=== PATIENT | female | born 1935 | race Caucasian/White ===

== ENCOUNTER 2022-12-28 06:18 | Inpatient (IN) ==
[2022-12-28] MEDS ORDERED: IOPAMIDOL 100 ML BOTTLE IV ONE (06:19)
[2022-12-28 06:44] LABS: POC Calcium, Ionized 1.31 (1.16-1.32); POC Creatinine 0.8 (0.6-1.2); POC Potassium 3.8 (3.3-5.1)
[2022-12-28] MEDS ORDERED: 0.9 % SODIUM CHLORIDE 1,000 ML IV ONE ×2 (06:53→07:58)
[2022-12-28] MEDS ORDERED: ONDANSETRON 4 MG/2 ML VIAL IV ONE (06:53)
--- NOTE | 2022-12-28 07:26 | Emergency Department Note ---
Nausea/Vomiting/Diarrhea HPI General Chief complaint: Nausea/Vomiting/Diarrhea Stated complaint: vomiting Time Seen by Provider: 12/28/22 06:28 Source: patient and EMS Mode of arrival: wheelchair Limitations: no limitations History of Present Illness HPI Narrative: The patient is an 87-year-old female with a history of DM 2, asthma, breast cancer, Charcot arthropathy with RA, GERD, HTN, CKD, previous nephrectomy who presents to the ED with nausea and vomiting. Symptoms started at around 1 AM this morning. Patient states that she has thrown up numerous times. She also reports diarrhea which is not atypical for her. No melena. No hematochezia. No hematemesis. No fevers. No urinary complaints. She denies any chest pain, shortness of breath, or abdominal pain. She states that last night she went to bed feeling "full" and believes that she may have eaten some bad food. No modifying factors. No known sick contacts. Related Data Home Medications Medication Instructions Recorded Confirmed aspirin 81 mg tablet,delayed 81 mg PO QDAY 07/12/15 04/12/22 release atenolol 25 mg tablet 12.5 mg PO QDAY 07/12/15 04/12/22 blood sugar diagnostic 07/13/15 04/12/22 cholecalciferol (vitamin D3) 25 1,000 unit PO BID 07/13/15 04/12/22 mcg (1,000 unit) capsule multivitamin 1 tab-cap PO QDAY 07/13/15 04/12/22 cyanocobalamin (vitamin B-12) 1,000 mcg PO QDAY 08/10/15 04/12/22 1,000 mcg tablet methylsulfonylmethane 1,000 mg 1,500 mg PO QDAY 12/13/15 04/12/22 tablet (MSM) pravastatin 20 mg tablet 20 mg PO QDAY 07/28/19 04/12/22 diltiazem HCl 120 mg See Rx Instructions .Route .COMPLEX 01/26/20 04/12/22 capsule,extended release 24 hr acetaminophen 500 mg capsule 500 mg PO Q6H PRN 05/04/20 04/12/22 simethicone 125 mg capsule (Gas-X 125 mg PO BID-QID PRN 05/04/20 04/12/22 Extra Strength) pantoprazole 40 mg tablet,delayed 40 mg PO QDAY 30 days #30 tabs 10/13/20 04/12/22 release levothyroxine 100 mcg capsule 100 mcg PO QDAY 04/13/21 04/12/22 cranberry 500 mg capsule 1,400 mg PO QDAY 04/12/22 04/12/22 dimethicone 5 % topical cream 1 applic topical TID-QID PRN 04/12/22 04/12/22 magnesium oxide 400 mg (241.3 mg 400 mg PO QDAY 04/12/22 04/12/22 magnesium) tablet vit cap PO 04/12/22 04/12/22 C,E,zinc,Ds-dabag-6-lutein-zeaxanthin 250 mg-2.5 mg-0.5 mg capsule Previous Rx's Medication Instructions Recorded ondansetron 4 mg disintegrating 4 mg PO Q6H PRN nausea and 07/25/22 tablet vomiting #20 tabs Allergies Allergy/AdvReac Type Severity Reaction Status Date / Time niacin Allergy Mild Unknown Verified 04/12/22 09:10 ciprofloxacin Allergy Unknown Unknown Verified 04/12/22 09:10 hydrocodone Allergy Unknown Vomiting Verified 04/12/22 09:10 losartan [Losartan] Allergy Unknown Unknown Verified 04/12/22 09:10 moxifloxacin [From Avelox] Allergy Unknown Unknown Verified 04/12/22 09:10 olmesartan [From Benicar] Allergy Unknown Unknown Verified 04/12/22 09:10 albuterol AdvReac Intermediate Other Verified 04/12/22 09:12 omeprazole [From Prilosec] AdvReac Intermediate Gastrointestinal Verified 04/12/22 09:10 Upset fenofibric acid Allergy Unknown Unknown Uncoded 04/12/22 09:10 Review of Systems ROS ROS Narrative: Narrative: All systems ED: reviewed and negative except as stated. PFSH Narrative Patient History Narrative: Narrative: Medical/Surgical/Family History All Active Problems (Updated 12/28/22 @ 07:26 by Aayush Valentine MD) Essential hypertension (Chronic) Breast cancer (Chronic) Diabetes mellitus (Chronic) GERD (gastroesophageal reflux disease) (Chronic) Hereditary and idiopathic peripheral neuropathy (Chronic) High risk medication use (Chronic) Hyperlipidemia (Chronic) Hypothyroidism (Chronic) Osteoporosis (Chronic) Pernicious anemia (Chronic) Urgency incontinence (Chronic) Vitamin D deficiency (Chronic) COPD (chronic obstructive pulmonary disease) (Chronic) Diabetes mellitus with polyneuropathy (Chronic) Other specified abnormal findings of blood chemistry (Chronic) URI (upper respiratory infection) (Chronic) Acute viral syndrome (Chronic) Asthma (Chronic) Asymptomatic cholelithiasis (Chronic) Back pain (Chronic) Boyer esophagus (Chronic) HX: breast cancer (Chronic) Cellulitis (Chronic) 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) Decrease in the ability to hear (Chronic) Fall on same level from slipping, tripping and stumbling (Chronic) Hemoptysis (Chronic) Acute bronchitis (Chronic) Acute cystitis (Chronic) Acute sinusitis (Chronic) Cystitis (Chronic) Hypertension (Chronic) Toe fracture (Chronic) Hematuria (Chronic) Low back pain (Chronic) Pneumonia (Chronic) Thyroid disease (Chronic) Diabetes mellitus type II, controlled (Chronic) Urinary frequency (Chronic) Urinary tract infection (Chronic) Infection due to drug-resistant organism (Chronic) MRSA (methicillin resistant staph aureus) culture positive (Chronic) Ductal carcinoma of left breast (Chronic) Microalbuminuria (Chronic) Pain, coccyx (Chronic) Pneumonitis (Chronic) Renal neoplasm (Chronic) Skin cancer (Chronic) Cyst (Chronic) Ureteral stone (Chronic) Hx of appendectomy (Acute) S/P skin biopsy (Acute) H/O lumpectomy (Acute) H/O mastectomy (Acute) H/O colonoscopy (Acute) Hx of esophagogastroduodenoscopy (Acute) H/O total cystectomy (Acute) Status post surgical removal of malignant neoplasm of skin (Acute) H/O hernia repair (Acute) H/O breast biopsy (Acute) History of kidney surgery (Acute) History of knee replacement (Acute) S/P rotator cuff repair (Acute) H/O lymph node biopsy (Acute) Amputated toe of right foot (Acute) S/P NICOLETTE-BSO (total abdominal hysterectomy and bilateral salpingo-oophorectomy) (Acute) Fracture, ankle (Acute) Proteinuria (Chronic) Chronic kidney disease, stage II (mild) (Chronic) Hypertensive renal disease (Chronic) Pneumonia (Acute) Bladder infection (Acute) Aspiration pneumonia (Acute) Toe contusion (Acute) Metatarsal fracture (Acute) Chronic kidney disease (CKD) stage G3a/A2, moderately decreased glomerular f iltration rate (GFR) between 45-59 mL/min/1.73 square meter and albuminuria creatinine ratio between 30-299 mg/g (Chronic) Pyuria (Acute) H/O right nephrectomy (Chronic) Non-nephrotic range proteinuria (Chronic) Contusion of foot, left (Acute) Foreign body sensation in throat (Acute) Viral gastroenteritis (Acute) Closed rib fracture (Acute) Nausea & vomiting (Acute) Medical History Acute bronchitis Acute cystitis Acute sinusitis Acute viral syndrome Amputated toe of right foot Asthma Asymptomatic cholelithiasis Back pain Boyer esophagus Bladder infection Breast cancer Cellulitis TOE Charcot arthropathy associated with rheumatoid arthritis Chronic kidney disease, stage II (mild) COPD (chronic obstructive pulmonary disease) Cyst Cystitis Decrease in the ability to hear Diabetes mellitus Diabetes mellitus type II, controlled Diabetes mellitus with polyneuropathy Ductal carcinoma of left breast Essential hypertension BP a little elevated today, usually well controlled advised to keep a BP log will follow and optimize in setting of Mild with pLVEF Fall on same level from slipping, tripping and stumbling Gastroparesis Gastric emptying study 10/13/2019 Seen at [facility] by Jazzmine Steiner GERD (gastroesophageal reflux disease) Hematuria Hemoptysis Hereditary and idiopathic peripheral neuropathy High risk medication use HX: breast cancer Hyperlipidemia Hypertension Hypertensive renal disease Hypothyroidism Infection due to drug-resistant organism Low back pain Microalbuminuria MRSA (methicillin resistant staph aureus) culture positive Osteoporosis Other specified abnormal findings of blood chemistry Pain, coccyx Pernicious anemia Pneumonia Pneumonia Pneumonitis Proteinuria Renal neoplasm Skin cancer Thyroid disease Toe fracture Ureteral stone Urgency incontinence URI (upper respiratory infection) Urinary frequency Urinary tract infection asymptomatic klebsiella on urine culture with > [id number] CFU Will treat with cephalexin Vitamin D deficiency Surgical History Fracture, ankle repair H/O breast biopsy H/O colonoscopy H/O hernia repair H/O lumpectomy H/O lymph node biopsy H/O mastectomy H/O total cystectomy Tendon Sheath History of esophagogastroduodenoscopy (EGD) (~10/08/19) Status post esophageal dilatation History of kidney surgery History of knee replacement History of Addie fundoplication (~01/17/19) Hx of appendectomy Hx of esophagogastroduodenoscopy S/P rotator cuff repair S/P skin biopsy S/P NICOLETTE-BSO (total abdominal hysterectomy and bilateral salpingo-oophorectomy) Status post surgical removal of malignant neoplasm of skin Family History Family/Other Adenomatous polyp Maternal Aunt Diabetes mellitus Maternal Aunt Malignant tumor of breast Maternal Aunt Heart disease Maternal Uncle Sister Asthma Diabetes mellitus Osteoarthritis Chronic obstructive pulmonary disease Neurological disorder Malignant neoplasm of uterus Disorder of thyroid Mother , age 51 Malignant neoplastic disease Grandmother Heart disease Maternal Coronary artery disease Maternal Daughter Diabetes mellitus Asthma Disorder of thyroid Father , age 79 Kidney disease Other Cardiac disease Malignant neoplasm of colon Osteoporosis Social History Smoking Status: Never smoker Alcohol Intake Frequency: holiday/special occasion only Substance Use: does not use Exam Narrative Narrative: Constitutional: Well-nourished, well-developed. No acute distress. HEENT: Normocephalic. Atraumatic. EOMI. Conjunctive are clear bilaterally. OP clear. Uvula midline. Dry mucous membranes. Cardiovascular: Rapid rate. Regular rhythm. No murmurs, rubs, gallops. Pulmonary: No increased work of breathing. Lung sounds clear to auscultation bilaterally. No wheezing, rales, or rhonchi. Abdomen: Soft, nondistended. Very mild discomfort with palpation in the left upper quadrant. Normal bowel sounds. No HSM. No guarding. Musculoskeletal: Normal muscular development. No obvious deformities. No lower extremity edema. Skin: Warm, dry. No rash. Neurologic: Awake, alert, and oriented. Motor function grossly intact. Afocal. General Limitations: no limitations Course Course Course Narrative: The patient is HD stable. She does not. Dry on exam. Abdomen is largely benign on exam. Labs were ordered and patient was given 1 L NS and 4 mg IV Zofran. Patient signed out to Dr. Borges pending results of her blood work and final disposition. Vital Signs Vital signs: Vital Signs Temperature 98.3 F 12/28/22 06:18 Pulse Rate 92 H 12/28/22 06:18 Respiratory Rate 30 H 12/28/22 06:18 Blood Pressure 172/66 12/28/22 06:18 Pulse Oximetry (%) 92 12/28/22 06:18 Oxygen Delivery Method Room Air 12/28/22 06:18 Temperature 98.3 F 12/28/22 06:18 Pulse Rate 94 H 12/28/22 06:41 Respiratory Rate 30 H 12/28/22 06:18 Blood Pressure 135/101 12/28/22 06:41 Pulse Oximetry (%) 94 12/28/22 06:41 Oxygen Delivery Method Room Air 12/28/22 06:18 MDM MDM Narrative Medical decision making narrative: Narrative: Differential Diagnosis Differential Diagnosis: Gastroenteritis, partial SBO, ACS, foodborne illness, dehydration Lab Data 12/28/22 06:37 Labs: Lab Results 12/28/22 Range/Units 06:40 POC Hct 42.0 (36-48) POC Sodium 144 (133-145) POC Potassium 3.8 (3.3-5.1) POC Chloride 116 H (96-108) POC Total CO2 16.0 L (22-30) POC BUN 27 H (6-20) POC Creatinine 0.8 (0.6-1.2) POC Glucose 183 H (70-105) POC WB Ioniz Calcium 1.31 (1.16-1.32) EKG Data EKG #1: EKG attestation: Yes I reviewed and interpreted this EKG. EKG results narrative: Sinus rhythm. PVC. No ST elevation or depression. Nonspecific diffuse T wave changes. Late R wave progression. Left axis deviation. Discharge Plan Patient/Caregiver Discharge Instructions Pt seen by LENS POLISHER/PA only: No Clinical Impression: Nausea & vomiting Patient Disposition: Still a Patient Condition: Undetermined Follow up with: Salma Rangel MD [Primary Care Provider] - Prescriptions: No Action atenolol 25 mg tablet 12.5 mg PO QDAY aspirin 81 mg tablet,delayed release (DR/EC) 81 mg PO QDAY cranberry 500 mg capsule 1,400 mg PO QDAY Rx Instructions: 4,200 mg a day. magnesium oxide 400 mg (241.3 mg magnesium) tablet 400 mg PO QDAY (DME) blood sugar diagnostic strip See Dose Instructions .ROUTE .MEDSUPPLY Rx Instructions: As directed cholecalciferol (vitamin D3) 1,000 unit capsule 1,000 unit PO BID multivitamin capsule 1 tab-cap PO QDAY cyanocobalamin (vitamin B-12) 1,000 mcg tablet 1,000 mcg PO QDAY diltiazem HCl 120 mg capsule,extended release 24hr See Rx Instructions .ROUTE .COMPLEX Rx Instructions: Take 1 BID; if sbp is less than 120; hold morning dose; methylsulfonylmethane [MSM] 1,000 mg tablet 1,500 mg PO QDAY pantoprazole 40 mg tablet,delayed release (DR/EC) 40 mg PO QDAY 30 Days Qty: 30 pravastatin 20 mg tablet 20 mg PO QDAY acetaminophen 500 mg capsule 500 mg PO Q6H PRN simethicone [Gas-X Extra Strength] 125 mg capsule 125 mg PO BID-QID PRN levothyroxine 100 mcg capsule 100 mcg PO QDAY vit C,E,Zn,Ox-ygvvv0-pep-zeax 250-2.5-0.5 mg capsule PO dimethicone 5 % cream 1 applic topical TID-QID PRN ondansetron 4 mg tablet,disintegrating 4 mg PO Q6H PRN (Reason: nausea and vomiting) Qty: 20 0RF
[2022-12-28 07:41] LABS: Basophils # (Auto) 0.02 K/mcL (0.00-0.30); Basophils % (Auto) 0.3 % (0.0-2.0); Eosinophils # (Auto) 0.06 K/mcL (0.00-0.70); Eosinophils % (Auto) 0.9 % (0.0-7.0); Hematocrit 40.7 % (34.1-44.9); Hemoglobin 13.5 g/dL (11.2-15.7); Lymphocytes # (Auto) 0.89 K/mcL (1.50-4.80); Lymphocytes % (Auto) 13.3 % (15.5-49.0); Mean Corpuscular HGB Conc 33.2 g/dL (31.0-36.0); Mean Platelet Volume 8.4 fL (8.8-12.5); Monocytes # (Auto) 0.07 K/mcL (0.10-0.90); Neutrophils % (Auto) 84.4 % (38.0-78.0); Platelet Count 263 K/mcL (140-440); RBC 4.24 M/mcL (3.59-5.38); Red Cell Distribution Width 13.3 % (11.5-14.5); WBC 6.7 K/mcL (4.5-11.0)
[2022-12-28 07:48] LABS: ALT/SGPT 11 U/L (<40); AST/SGOT 14 U/L (<32); Albumin 3.9 gm/dL (3.2-5.2); Alkaline Phosphatase 73 U/L (39-117); Bilirubin,Direct < 0.2 mg/dL (0-0.3); Bilirubin,Total 0.3 mg/dL (0.1-1.0); Globulin 3.4 gm/dL (2.2-3.7)
--- NOTE | 2022-12-28 08:02 | Emergency Department Note ---
Course Reevaluation(s) Reevaluation #1: Despite multiple fluid boluses and patient symptomatically feeling significantly better, patient's lactate is still elevated. It did decrease slightly but the last one was more elevated. It is unclear exactly why. We will do a CT of the abdomen to ensure that there is no dangerous pathology that could be causing the lactic acidosis. Time: 13:26 Consultations Consultation #1: I spoke to the hospitalist, Dr. Medina. He asked me to get a respiratory panel but agreed to admit the patient. Time: 15:16 Vital Signs Vital signs: Vital Signs Temperature 98.3 F 12/28/22 06:18 Pulse Rate 92 H 12/28/22 06:18 Respiratory Rate 30 H 12/28/22 06:18 Blood Pressure 172/66 12/28/22 06:18 Pulse Oximetry (%) 92 12/28/22 06:18 Oxygen Delivery Method Room Air 12/28/22 06:18 Temperature 98.3 F 12/28/22 06:18 Pulse Rate 87 12/28/22 15:08 Respiratory Rate 20 12/28/22 13:40 Blood Pressure 121/58 12/28/22 13:40 Pulse Oximetry (%) 95 12/28/22 15:08 Oxygen Delivery Method Room Air 12/28/22 06:18 MDM MDM Narrative Medical decision making narrative: Narrative: The patient was inherited at change of shift. I reviewed her labs. She does appear dehydrated. She has an elevated lactate. Plan to give a second liter of fluid. When I reevaluate the patient at 0800, she states she is feeling much better. She wants something to drink. She is informed of the results and the plan to give more fluid and then repeat labs. Lab Data Lab results reviewed: Yes I reviewed the patient's lab results. 12/28/22 06:37 Labs: Lab Results 12/28/22 12/28/22 12/28/22 Range/Units 06:37 06:37 06:40 WBC 6.7 (4.5-11.0) K/mcL RBC 4.24 (3.59-5.38) M/mcL Hgb 13.5 (11.2-15.7) g/dL Hct 40.7 (34.1-44.9) % POC Hct 42.0 (36-48) MCV 96.0 (80.0-100.0) fL MCH 31.8 (26.0-34.0) pg MCHC 33.2 (31.0-36.0) g/dL RDW 13.3 (11.5-14.5) % Plt Count 263 (140-440) K/mcL MPV 8.4 L (8.8-12.5) fL Immature Gran % (Auto) 0.1 (0.0-0.5) % Neut % (Auto) 84.4 H (38.0-78.0) % Lymph % (Auto) 13.3 L (15.5-49.0) % Hamblen % (Auto) 1.0 (1.0-12.0) % Eos % (Auto) 0.9 (0.0-7.0) % Baso % (Auto) 0.3 (0.0-2.0) % Lymph # (Auto) 0.89 L (1.50-4.80) K/mcL Hamblen # (Auto) 0.07 L (0.10-0.90) K/mcL Eos # (Auto) 0.06 (0.00-0.70) K/mcL Baso # (Auto) 0.02 (0.00-0.30) K/mcL Immature Gran # 0.01 (0.00-0.05) K/mcl Absolute Neutrophils 5.66 (1.80-8.00) K/mcL POC VBG pH (7.32-7.42) POC VBG pCO2 at Temp (41-51) POC VBG pO2 (25-40) POC VBG HCO3 (24-28) POC VBG Total CO2 (25-29) POC Venous O2 Sat (40-70) POC VBG Base Excess (-2-2) VBG Lactic Acid (0.5-2) POC Sodium 144 (133-145) POC Potassium 3.8 (3.3-5.1) POC Chloride 116 H (96-108) POC Total CO2 16.0 L (22-30) POC BUN 27 H (6-20) POC Creatinine 0.8 (0.6-1.2) POC Glucose 183 H (70-105) POC WB Ioniz Calcium 1.31 (1.16-1.32) Total Bilirubin 0.3 (0.1-1.0) mg/dL Direct Bilirubin < 0.2 (0-0.3) mg/dL AST 14 (<32) U/L ALT 11 (<40) U/L Alkaline Phosphatase 73 (39-117) U/L Total Protein 7.3 (5.9-8.4) gm/dL Albumin 3.9 (3.2-5.2) gm/dL Globulin 3.4 (2.2-3.7) gm/dL Lipase 23 (7-60) U/L POC Troponin I (0.00-0.08) 12/28/22 12/28/22 12/28/22 Range/Units 07:23 07:25 09:34 WBC (4.5-11.0) K/mcL RBC (3.59-5.38) M/mcL Hgb (11.2-15.7) g/dL Hct (34.1-44.9) % POC Hct (36-48) MCV (80.0-100.0) fL MCH (26.0-34.0) pg MCHC (31.0-36.0) g/dL RDW (11.5-14.5) % Plt Count (140-440) K/mcL MPV (8.8-12.5) fL Immature Gran % (Auto) (0.0-0.5) % Neut % (Auto) (38.0-78.0) % Lymph % (Auto) (15.5-49.0) % Hamblen % (Auto) (1.0-12.0) % Eos % (Auto) (0.0-7.0) % Baso % (Auto) (0.0-2.0) % Lymph # (Auto) (1.50-4.80) K/mcL Hamblen # (Auto) (0.10-0.90) K/mcL Eos # (Auto) (0.00-0.70) K/mcL Baso # (Auto) (0.00-0.30) K/mcL Immature Gran # (0.00-0.05) K/mcl Absolute Neutrophils (1.80-8.00) K/mcL POC VBG pH 7.25 L 7.26 L (7.32-7.42) POC VBG pCO2 at Temp 31.9 L 34.6 L (41-51) POC VBG pO2 38 25 (25-40) POC VBG HCO3 14.0 L 15.6 L (24-28) POC VBG Total CO2 15.0 L 17.0 L (25-29) POC Venous O2 Sat 64.0 38.0 L (40-70) POC VBG Base Excess -13.0 L -11.0 L (-2-2) VBG Lactic Acid 3.2 H 2.4 H (0.5-2) POC Sodium (133-145) POC Potassium (3.3-5.1) POC Chloride (96-108) POC Total CO2 (22-30) POC BUN (6-20) POC Creatinine (0.6-1.2) POC Glucose (70-105) POC WB Ioniz Calcium (1.16-1.32) Total Bilirubin (0.1-1.0) mg/dL Direct Bilirubin (0-0.3) mg/dL AST (<32) U/L ALT (<40) U/L Alkaline Phosphatase (39-117) U/L Total Protein (5.9-8.4) gm/dL Albumin (3.2-5.2) gm/dL Globulin (2.2-3.7) gm/dL Lipase (7-60) U/L POC Troponin I < 0.02 (0.00-0.08) 12/28/22 12/28/22 Range/Units 12:16 12:33 WBC (4.5-11.0) K/mcL RBC (3.59-5.38) M/mcL Hgb (11.2-15.7) g/dL Hct (34.1-44.9) % POC Hct (36-48) MCV (80.0-100.0) fL MCH (26.0-34.0) pg MCHC (31.0-36.0) g/dL RDW (11.5-14.5) % Plt Count (140-440) K/mcL MPV (8.8-12.5) fL Immature Gran % (Auto) (0.0-0.5) % Neut % (Auto) (38.0-78.0) % Lymph % (Auto) (15.5-49.0) % Hamblen % (Auto) (1.0-12.0) % Eos % (Auto) (0.0-7.0) % Baso % (Auto) (0.0-2.0) % Lymph # (Auto) (1.50-4.80) K/mcL Hamblen # (Auto) (0.10-0.90) K/mcL Eos # (Auto) (0.00-0.70) K/mcL Baso # (Auto) (0.00-0.30) K/mcL Immature Gran # (0.00-0.05) K/mcl Absolute Neutrophils (1.80-8.00) K/mcL POC VBG pH 7.26 L (7.32-7.42) POC VBG pCO2 at Temp 31.7 L (41-51) POC VBG pO2 27 (25-40) POC VBG HCO3 14.4 L (24-28) POC VBG Total CO2 15.0 L (25-29) POC Venous O2 Sat 42.0 (40-70) POC VBG Base Excess -13.0 L (-2-2) VBG Lactic Acid 3.2 H 3.1 H (0.5-2) POC Sodium (133-145) POC Potassium (3.3-5.1) POC Chloride (96-108) POC Total CO2 (22-30) POC BUN (6-20) POC Creatinine (0.6-1.2) POC Glucose (70-105) POC WB Ioniz Calcium (1.16-1.32) Total Bilirubin (0.1-1.0) mg/dL Direct Bilirubin (0-0.3) mg/dL AST (<32) U/L ALT (<40) U/L Alkaline Phosphatase (39-117) U/L Total Protein (5.9-8.4) gm/dL Albumin (3.2-5.2) gm/dL Globulin (2.2-3.7) gm/dL Lipase (7-60) U/L POC Troponin I (0.00-0.08) Radiology Data Radiology results reviewed: Yes I reviewed the patient's radiology results. CC TIME Critical Care Time Critical Care Time: Yes Total Critical Care Time: 35 Attestation: Without intervention, patient may have had a deleterious outcome Discharge Plan Patient/Caregiver Discharge Instructions Pt seen by FOOD TECHNOLOGIST/PA only: No Clinical Impression: Elevated lactic acid level Nausea & vomiting Qualifiers: Vomiting type: unspecified Qualified Code(s): R11.2 - Nausea with vomiting, unspecified Pneumonia Qualifiers: Pneumonia type: due to unspecified organism Laterality: left Lung location: lower lobe of lung Qualified Code(s): J18.9 - Pneumonia, unspecified organism Patient Disposition: Xfer As Inpt ([facility]) Condition: Fair Follow up with: Salma Rangel MD [Primary Care Provider] - Prescriptions: No Action atenolol 25 mg tablet 12.5 mg PO QDAY aspirin 81 mg tablet,delayed release (DR/EC) 81 mg PO QDAY cranberry 500 mg capsule 1,400 mg PO QDAY Rx Instructions: 4,200 mg a day. magnesium oxide 400 mg (241.3 mg magnesium) tablet 400 mg PO QDAY (DME) blood sugar diagnostic strip See Dose Instructions .ROUTE .MEDSUPPLY Rx Instructions: As directed cholecalciferol (vitamin D3) 1,000 unit capsule 1,000 unit PO BID multivitamin capsule 1 tab-cap PO QDAY cyanocobalamin (vitamin B-12) 1,000 mcg tablet 1,000 mcg PO QDAY diltiazem HCl 120 mg capsule,extended release 24hr See Rx Instructions .ROUTE .COMPLEX Rx Instructions: Take 1 BID; if sbp is less than 120; hold morning dose; methylsulfonylmethane [MSM] 1,000 mg tablet 1,500 mg PO QDAY pantoprazole 40 mg tablet,delayed release (DR/EC) 40 mg PO QDAY 30 Days Qty: 30 pravastatin 20 mg tablet 20 mg PO QDAY acetaminophen 500 mg capsule 500 mg PO Q6H PRN simethicone [Gas-X Extra Strength] 125 mg capsule 125 mg PO BID-QID PRN levothyroxine 100 mcg capsule 100 mcg PO QDAY vit C,E,Zn,Xr--lmq-zeax 250-2.5-0.5 mg capsule PO dimethicone 5 % cream 1 applic topical TID-QID PRN ondansetron 4 mg tablet,disintegrating 4 mg PO Q6H PRN (Reason: nausea and vomiting) Qty: 20 0RF
[2022-12-28] MEDS ORDERED: 0.9 % SODIUM CHLORIDE 500 ML IV ONE (09:49)
--- NOTE | 2022-12-28 14:56 | Cat Scan Report ---
CLINICAL INFORMATION: Vomiting diarrhea high lactate COMPARISON: Abdomen and pelvic CT 11/12/2013. TECHNIQUE: Following enteric contrast, 80 cc of Isovue-370 were injected intravenously, and 60 seconds later, 0.625 mm helical slices were obtained from the mid heart through the subtrochanteric regions. Following reconstruction, 2.5 mm sagittal, coronal and axial reformatted images were processed and reviewed at bone, lung and soft tissue windows. Five minutes later, 0.625 mm helical slices were obtained from the mid heart through the kidneys and viewed at soft tissue windows.The exam was performed using radiation dose optimization techniques including, but not limited to, automated exposure control, adjustment of the mA and/or kV according to patient size and use of iterative reconstruction technique. FINDINGS: Lung bases show large patchy infiltrate in the left lower lobe and the lingula compatible with pneumonia. The right lung base is normal. Moderate hiatal hernia again noted. The heart is mildly enlarged with calcification both aortic and mitral valve Abdominal images show mild fatty changes within the liver, but no focal hepatic lesion. Multiple small stones seen in the gallbladder fundus. The gallbladder wall is normal thickness-no evidence of cholecystitis. Intrahepatic and common bile ducts are normal caliber: CBD is 6 mm. Pancreas shows mild atrophy which has progressed. Right kidney is surgically absent. There is compensatory hypertrophy of the left kidney: 12 cm in length. Mild left perinephric edema appreciated. The spleen is normal. The aorta is normal diameter-there is extraordinarily heavy calcific plaque in the abdominal aorta resulting in 50% stenosis in the infrarenal segment. Pelvic images show hysterectomy and oophorectomy changes. Moderate diffuse wall thickening of the urinary bladder appreciated with air in the bladder dome. Multiple sigmoid diverticuli appreciated, but no evidence of diverticulitis. The remaining large bowel, appendix region, small bowel and stomach are grossly normal. Small periumbilical hernia contains mesenteric fat. There are also small bilateral inguinal hernias containing mesenteric fat. Bone windows show grade 1 L4-5 spondylolisthesis broad disc protrusion resulting in moderate central canal and mild bilateral IV foraminal narrowing. IMPRESSION: 1. Moderate left lower lobe pneumonia. 2. Moderate wall thickening of the urinary bladder suggesting cystitis. 3. Left perinephric edema and slight inhomogeneous left renal attenuation suggesting, but certainly not diagnostic, for pyelonephritis. Right kidney is surgically absent. 4. Cholelithiasis. 5. Heavy calcific plaque in the infrarenal abdominal aorta resulting in 50% stenoses. 6. Small periumbilical umbilical and bilateral inguinal hernias containing only mesenteric fat. 7. Moderate hiatal hernia. Interpreted and Authenticated by: Ozzie Lozoya 12/28/22
[2022-12-28] MEDS ORDERED: AZITHROMYCIN 500 MG in DEXTROSE 5% IN WATER 250 ML IV ONE (14:59)
[2022-12-28] MEDS ORDERED: cefTRIAXone 1 GM VIAL IV ONE (14:59)
--- NOTE | 2022-12-28 16:04 | Internal Med History&Physical ---
HPI History of Present Illness Patient information: Note initiated : 12/28/22 at 4:00 pm Service Date, if different from initiated Date: [] Patient: Molly Balderas a 87 y/o F admitted on for vomiting. Chief Complaint: [nausea, vomiting, diarrhea] Chief complaint: nausea, vomiting, diarrhea History of present illness: Ms. Balderas is a 87 year old F history of type 2 diabetes mellitus, hypothyroidism, GERD, dyslipidemia, hypertensions, presenting with 1 day history of nausea vomiting and diarrhea. She is coming of nausea vomiting and diarrhea. In addition, she is coming of shortness of breath, nonproductive cough, as well as shaking chills. She denies having any subjective fever or diaphoresis. She denies having any dysuria. She denies recent travel or sick contact. She has some strength last night which was new for her. Vital signs at ED presentation only significant for mild tachypnea with rate of breathing in the mid 20s, rest of the vital signs within normal limits. Labs significant for lack of l eukocytosis with WBC 6.7. Lactic acid 3.2-->2.4-->3.1. CT of the abdomen and pelvis showing left lower lobe pneumonia as well as left pyelonephritis/cystitis. Admission request is called for metabolic acidosis associated with pneumonia/UTI. Constitutional Constitutional: Present chills, fatigue and weakness; Absent excessive sweating or fever(s) EENT Eyes: Absent blurry vision, change in vision, loss of vision or other visual disturbances Ears: Absent decreased hearing or tinnitus Nose, mouth and throat: Absent abnormal hearing, dry mouth, headache(s), nasal congestion or sore throat Cardiovascular Cardiovascular: Absent chest pain, chest pain at rest, edema, irregular heart rhythm or palpatations Respiratory Respiratory: Present cough and dyspnea; Absent wheezing Gastrointestinal Gastrointestinal: Present diarrhea, nausea and vomiting; Absent abdominal pain or constipation Musculoskeletal Musculoskeletal: Absent back pain, deformity, limited range of motion, muscle cramps, muscle weakness or numbness Integumentary Integumentary: Absent lesions, rash or wounds Neurological Neurological: Absent focal weakness, headache(s) or numbness Psychiatric Psychiatric: Absent anxiety, depression or hallucinations PFSH PFSH All Active Problems (Updated 12/28/22 @ 16:24 by Pablo Medina MD) LLL pneumonia (Acute) Essential hypertension (Chronic) Breast cancer (Chronic) Diabetes mellitus (Chronic) GERD (gastroesophageal reflux disease) (Chronic) Hereditary and idiopathic peripheral neuropathy (Chronic) High risk medication use (Chronic) Hyperlipidemia (Chronic) Hypothyroidism (Chronic) Osteoporosis (Chronic) Pernicious anemia (Chronic) Urgency incontinence (Chronic) Vitamin D deficiency (Chronic) COPD (chronic obstructive pulmonary disease) (Chronic) Diabetes mellitus with polyneuropathy (Chronic) Other specified abnormal findings of blood chemistry (Chronic) URI (upper respiratory infection) (Chronic) Acute viral syndrome (Chronic) Asthma (Chronic) Asymptomatic cholelithiasis (Chronic) Back pain (Chronic) Boyer esophagus (Chronic) HX: breast cancer (Chronic) Cellulitis (Chronic) 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) Decrease in the ability to hear (Chronic) Fall on same level from slipping, tripping and stumbling (Chronic) Hemoptysis (Chronic) Acute bronchitis (Chronic) Acute cystitis (Chronic) Acute sinusitis (Chronic) Cystitis (Chronic) Hypertension (Chronic) Toe fracture (Chronic) Hematuria (Chronic) Low back pain (Chronic) Pneumonia (Chronic) Thyroid disease (Chronic) Diabetes mellitus type II, controlled (Chronic) Urinary frequency (Chronic) Urinary tract infection (Chronic) Infection due to drug-resistant organism (Chronic) MRSA (methicillin resistant staph aureus) culture positive (Chronic) Ductal carcinoma of left breast (Chronic) Microalbuminuria (Chronic) Pain, coccyx (Chronic) Pneumonitis (Chronic) Renal neoplasm (Chronic) Skin cancer (Chronic) Cyst (Chronic) Ureteral stone (Chronic) Hx of appendectomy (Acute) S/P skin biopsy (Acute) H/O lumpectomy (Acute) H/O mastectomy (Acute) H/O colonoscopy (Acute) Hx of esophagogastroduodenoscopy (Acute) H/O total cystectomy (Acute) Status post surgical removal of malignant neoplasm of skin (Acute) H/O hernia repair (Acute) H/O breast biopsy (Acute) History of kidney surgery (Acute) History of knee replacement (Acute) S/P rotator cuff repair (Acute) H/O lymph node biopsy (Acute) Amputated toe of right foot (Acute) S/P NICOLETTE-BSO (total abdominal hysterectomy and bilateral salpingo-oophorectomy) (Acute) Fracture, ankle (Acute) Proteinuria (Chronic) Chronic kidney disease, stage II (mild) (Chronic) Hypertensive renal disease (Chronic) Pneumonia (Acute) Bladder infection (Acute) Aspiration pneumonia (Acute) Toe contusion (Acute) Metatarsal fracture (Acute) Chronic kidney disease (CKD) stage G3a/A2, moderately decreased glomerular filtration rate (GFR) between 45-59 mL/min/1.73 square meter and albuminuria creatinine ratio between 30-299 mg/g (Chronic) Pyuria (Acute) H/O right nephrectomy (Chronic) Non-nephrotic range proteinuria (Chronic) Contusion of foot, left (Acute) Foreign body sensation in throat (Acute) Viral gastroenteritis (Acute) Closed rib fracture (Acute) Nausea & vomiting (Acute) Pneumonia (Acute) Elevated lactic acid level (Acute) Medical History Acute bronchitis Acute cystitis Acute sinusitis Acute viral syndrome Amputated toe of right foot Asthma Asymptomatic cholelithiasis Back pain Boyer esophagus Bladder infection Breast cancer Cellulitis TOE Charcot arthropathy associated with rheumatoid arthritis Chronic kidney disease, stage II (mild) COPD (chronic obstructive pulmonary disease) Cyst Cystitis Decrease in the ability to hear Diabetes mellitus Diabetes mellitus type II, controlled Diabetes mellitus with polyneuropathy Ductal carcinoma of left breast Essential hypertension BP a little elevated today, usually well controlled advised to keep a BP log will follow and optimize in setting of Mild with pLVEF Fall on same level from slipping, tripping and stumbling Gastroparesis Gastric emptying study 10/13/2019 Seen at [facility] by [facility]iner GERD (gastroesophageal reflux disease) Hematuria Hemoptysis Hereditary and idiopathic peripheral neuropathy High risk medication use HX: breast cancer Hyperlipidemia Hypertension Hypertensive renal disease Hypothyroidism Infection due to drug-resistant organism Low back pain Microalbuminuria MRSA (methicillin resistant staph aureus) culture positive Osteoporosis Other specified abnormal findings of blood chemistry Pain, coccyx Pernicious anemia Pneumonia Pneumonia Pneumonitis Proteinuria Renal neoplasm Skin cancer Thyroid disease Toe fracture Ureteral stone Urgency incontinence URI (upper respiratory infection) Urinary frequency Urinary tract infection asymptomatic klebsiella on urine culture with > [id number] CFU Will treat with cephalexin Vitamin D deficiency Surgical History Fracture, ankle repair H/O breast biopsy H/O colonoscopy H/O hernia repair H/O lumpectomy H/O lymph node biopsy H/O mastectomy H/O total cystectomy Tendon Sheath History of esophagogastroduodenoscopy (EGD) (~10/08/19) Status post esophageal dilatation History of kidney surgery History of knee replacement History of Addie fundoplication (~01/17/19) Hx of appendectomy Hx of esophagogastroduodenoscopy S/P rotator cuff repair S/P skin biopsy S/P NICOLETTE-BSO (total abdominal hysterectomy and bilateral salpingo-oophorectomy) Status post surgical removal of malignant neoplasm of skin Family History Family/Other Adenomatous polyp Maternal Aunt Diabetes mellitus Maternal Aunt Malignant tumor of breast Maternal Aunt Heart disease Maternal Uncle Sister Asthma Diabetes mellitus Osteoarthritis Chronic obstructive pulmonary disease Neurological disorder Malignant neoplasm of uterus Disorder of thyroid Mother , age 51 Malignant neoplastic disease Grandmother Heart disease Maternal Coronary artery disease Maternal Daughter Diabetes mellitus Asthma Disorder of thyroid Father , age 79 Kidney disease Other Cardiac disease Malignant neoplasm of colon Osteoporosis Social History marital status: frequency: 3-4 times per week smoking status: Never smoker alcohol intake frequency: holiday/special occasion only substance use type: does not use MEDS/ALLERGIES Home Medications and Allergies Home Medications Medication Instructions Recorded Confirmed Type aspirin 81 mg tablet,delayed 81 mg PO QDAY 07/12/15 04/12/22 History release atenolol 25 mg tablet 12.5 mg PO QDAY 07/12/15 04/12/22 History blood sugar diagnostic 07/13/15 04/12/22 History cholecalciferol (vitamin D3) 25 1,000 unit PO BID 07/13/15 04/12/22 History mcg (1,000 unit) capsule multivitamin 1 tab-cap PO QDAY 07/13/15 04/12/22 History cyanocobalamin (vitamin B-12) 1,000 mcg PO QDAY 08/10/15 04/12/22 History 1,000 mcg tablet methylsulfonylmethane 1,000 mg 1,500 mg PO QDAY 12/13/15 04/12/22 History tablet (MSM) pravastatin 20 mg tablet 20 mg PO QDAY 07/28/19 04/12/22 History diltiazem HCl 120 mg See Rx Instructions .Route .COMPLEX 01/26/20 04/12/22 History capsule,extended release 24 hr acetaminophen 500 mg capsule 500 mg PO Q6H PRN 05/04/20 04/12/22 History simethicone 125 mg capsule (Gas-X 125 mg PO BID-QID PRN 05/04/20 04/12/22 History Extra Strength) pantoprazole 40 mg tablet,delayed 40 mg PO QDAY 30 days #30 tabs 10/13/20 04/12/22 History release levothyroxine 100 mcg capsule 100 mcg PO QDAY 04/13/21 04/12/22 History cranberry 500 mg capsule 1,400 mg PO QDAY 04/12/22 04/12/22 History dimethicone 5 % topical cream 1 applic topical TID-QID PRN 04/12/22 04/12/22 History magnesium oxide 400 mg (241.3 mg 400 mg PO QDAY 04/12/22 04/12/22 History magnesium) tablet vit cap PO 04/12/22 04/12/22 History C,E,zinc,Jb-ovczw-2-lutein-zeaxanthin 250 mg-2.5 mg-0.5 mg capsule ondansetron 4 mg disintegrating 4 mg PO Q6H PRN nausea and 07/25/22 Rx tablet vomiting #20 tabs Allergies Allergy/AdvReac Type Severity Reaction Status Date / Time niacin Allergy Mild Unknown Verified 04/12/22 09:10 ciprofloxacin Allergy Unknown Unknown Verified 04/12/22 09:10 hydrocodone Allergy Unknown Vomiting Verified 04/12/22 09:10 losartan [Losartan] Allergy Unknown Unknown Verified 04/12/22 09:10 moxifloxacin [From Avelox] Allergy Unknown Unknown Verified 04/12/22 09:10 olmesartan [From Benicar] Allergy Unknown Unknown Verified 04/12/22 09:10 albuterol AdvReac Intermediate Other Verified 04/12/22 09:12 omeprazole [From Prilosec] AdvReac Intermediate Gastrointestinal Verified 04/12/22 09:10 Upset fenofibric acid Allergy Unknown Unknown Uncoded 04/12/22 09:10 EXAM Constitutional Vitals: Temp Pulse Resp BP Pulse Ox O2 Del Method 36.8 C 88 20 133/54 95 Room Air 12/28/22 06:18 12/28/22 15:29 12/28/22 13:40 12/28/22 15:29 12/28/22 15:29 12/28/22 06:18 General appearance: cooperative and no acute distress Exam: Shivering Head Head exam: Present atraumatic and normocephalic Eye Eye exam: Present EOMI and PERRL ENT ENT exam: Present mucous membranes moist, normal exam and normal external ear exam Neck Neck exam: Present normal inspection; Absent lymphadenopathy, tenderness or thyromegaly Respiratory Respiratory exam: Present rhonchi; Absent accessory muscle use, respiratory distress or wheezes Cardiovascular Cardiovascular exam: Present normal rate and rhythm and systolic murmur; Absent JVD GI/Abdominal GI/Abdominal exam: Present normal bowel sounds and soft; Absent organomegaly or tenderness Extremities Exam Extremities exam: Present full ROM, normal capillary refill and normal inspection; Absent tenderness Neurological Exam Neurological exam: Present alert, CN II-XII intact and oriented X3; Absent motor sensory deficit Psychiatric Psychiatric exam: Present normal affect and normal mood; Absent anxious or depressed Skin Skin exam: Present dry and intact DATA Data Completed and Pending Labs: Labs from last 24 hours 12/28/22 12/28/22 12/28/22 15:38 12:33 12:16 WBC RBC Hgb Hct POC Hct MCV MCH MCHC RDW Plt Count MPV Immature Gran % (Auto) Neut % (Auto) Lymph % (Auto) Carter % (Auto) Eos % (Auto) Baso % (Auto) Lymph # (Auto) Carter # (Auto) Eos # (Auto) Baso # (Auto) Immature Gran # Absolute Neutrophils POC VBG pH 7.26 L POC VBG pCO2 at Temp 31.7 L POC VBG pO2 27 POC VBG HCO3 14.4 L POC VBG Total CO2 15.0 L POC Venous O2 Sat 42.0 POC VBG Base Excess -13.0 L VBG Lactic Acid Pending 3.1 H 3.2 H POC Sodium POC Potassium POC Chloride POC Total CO2 POC BUN POC Creatinine POC Glucose POC WB Ioniz Calcium Total Bilirubin Direct Bilirubin AST ALT Alkaline Phosphatase Total Protein Albumin Globulin Lipase Procalcitonin POC Troponin I 12/28/22 12/28/22 12/28/22 09:34 07:25 07:23 WBC RBC Hgb Hct POC Hct MCV MCH MCHC RDW Plt Count MPV Immature Gran % (Auto) Neut % (Auto) Lymph % (Auto) Carter % (Auto) Eos % (Auto) Baso % (Auto) Lymph # (Auto) Carter # (Auto) Eos # (Auto) Baso # (Auto) Immature Gran # Absolute Neutrophils POC VBG pH 7.26 L 7.25 L POC VBG pCO2 at Temp 34.6 L 31.9 L POC VBG pO2 25 38 POC VBG HCO3 15.6 L 14.0 L POC VBG Total CO2 17.0 L 15.0 L POC Venous O2 Sat 38.0 L 64.0 POC VBG Base Excess -11.0 L -13.0 L VBG Lactic Acid 2.4 H 3.2 H POC Sodium POC Potassium POC Chloride POC Total CO2 POC BUN POC Creatinine POC Glucose POC WB Ioniz Calcium Total Bilirubin Direct Bilirubin AST ALT Alkaline Phosphatase Total Protein Albumin Globulin Lipase Procalcitonin POC Troponin I < 0.02 12/28/22 12/28/22 12/28/22 06:40 06:37 06:37 WBC RBC Hgb Hct POC Hct 42.0 MCV MCH MCHC RDW Plt Count MPV Immature Gran % (Auto) Neut % (Auto) Lymph % (Auto) Carter % (Auto) Eos % (Auto) Baso % (Auto) Lymph # (Auto) Carter # (Auto) Eos # (Auto) Baso # (Auto) Immature Gran # Absolute Neutrophils POC VBG pH POC VBG pCO2 at Temp POC VBG pO2 POC VBG HCO3 POC VBG Total CO2 POC Venous O2 Sat POC VBG Base Excess VBG Lactic Acid POC Sodium 144 POC Potassium 3.8 POC Chloride 116 H POC Total CO2 16.0 L POC BUN 27 H POC Creatinine 0.8 POC Glucose 183 H POC WB Ioniz Calcium 1.31 Total Bilirubin 0.3 Direct Bilirubin < 0.2 AST 14 ALT 11 Alkaline Phosphatase 73 Total Protein 7.3 Albumin 3.9 Globulin 3.4 Lipase 23 Procalcitonin Pending POC Troponin I 12/28/22 06:37 WBC 6.7 RBC 4.24 Hgb 13.5 Hct 40.7 POC Hct MCV 96.0 MCH 31.8 MCHC 33.2 RDW 13.3 Plt Count 263 MPV 8.4 L Immature Gran % (Auto) 0.1 Neut % (Auto) 84.4 H Lymph % (Auto) 13.3 L Carter % (Auto) 1.0 Eos % (Auto) 0.9 Baso % (Auto) 0.3 Lymph # (Auto) 0.89 L Carter # (Auto) 0.07 L Eos # (Auto) 0.06 Baso # (Auto) 0.02 Immature Gran # 0.01 Absolute Neutrophils 5.66 POC VBG pH POC VBG pCO2 at Temp POC VBG pO2 POC VBG HCO3 POC VBG Total CO2 POC Venous O2 Sat POC VBG Base Excess VBG Lactic Acid POC Sodium POC Potassium POC Chloride POC Total CO2 POC BUN POC Creatinine POC Glucose POC WB Ioniz Calcium Total Bilirubin Direct Bilirubin AST ALT Alkaline Phosphatase Total Protein Albumin Globulin Lipase Procalcitonin POC Troponin I A/P Assessment and plan (1) Essential hypertension: Status: Chronic (2) Diabetes mellitus: Status: Chronic (3) Hyperlipidemia: Status: Chronic (4) Hypothyroidism: Status: Chronic (5) Diabetes mellitus type II, controlled: Status: Chronic (6) Urinary tract infection: Status: Chronic (7) LLL pneumonia: Status: Acute Narrative A/P Narrative: Assessment and Plans: 1. Left lower lobe pneumonia: Observation med surg Supplemental oxygen therapy titrate to achieve spo2>92% as needed Serial lactic acid Procalcitonin level Respiratory panel Blood culture cbc w/ auto diff in the morning to trend WBC s/p IV fluid bolus given in the ED, to be followed by NS@100cc/hr Rocephin Zithromax Robitussin DM Physical therapy evaluation and treatment 2. UTI (cystitis vs left pyelonephritis): Serial lactic acid Procalcitonin level Urine culture Blood culture cbc w/ auto diff in the morning to trend WBC s/p IV fluid bolus given in the ED, to be followed by NS@100cc/hr Rocephin 3. T2DM: HgA1c Insulin Lispro SSI AC HS Accu Check AC HS Hypoglycemia protocol Diabetic diet 4. Essential hypertension: Atenolol Diltiazem Hydralazine 10mg IV q4-6hr PRN SBP>=180 and/or DBP>=110mmHg 5. Hypothyroidism: Continue thyroid replacement therapy 6. Hyperlipidemia: Continue statin therapy 7. GERD: Protonix GI ppx: Protonix DVT ppx: Lovenox Code status: Full Prognosis: guarded Disposition: observation med surg Time Spent With Patient Time: Total time spent is greater than 50% in coordination of care (as documented) at patient's floor/unit and/or counseling patient: Initial: Total time with patient: 55 - 74 minutes QUALITY Stroke Symptom Onset Unknown: No
--- NOTE | 2022-12-28 18:24 | EKG ---
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
[2022-12-28] MEDS ORDERED: hydrALAZINE 20 MG/ML VIAL IV PRN (18:36)
[2022-12-28] MEDS ORDERED: ONDANSETRON 4 MG/2 ML VIAL IV PRN (18:36)
[2022-12-28] MEDS ORDERED: ACETAMINOPHEN 325 MG TABLET PO PRN (18:36)
[2022-12-28] MEDS ORDERED: traZODone HCL 50 MG TABLET PO PRN (18:36)
[2022-12-28] MEDS ORDERED: PROCHLORPERAZINE 10 MG/2 ML VIAL IV PRN (18:36)
[2022-12-28] MEDS ORDERED: DEXTROSE 50% 50 ML VIAL IV PRN (18:36)
[2022-12-28] MEDS ORDERED: LOPERAMIDE 2 MG CAPSULE PO PRN (18:36)
[2022-12-28] MEDS ORDERED: PROMETHAZINE 25 MG/ML VIAL IV PRN (18:36)
[2022-12-28] MEDS ORDERED: IPRATROPIUM/ALBUTEROL 3 ML AMPUL.NEB NEB PRN (18:36)
[2022-12-28] MEDS ORDERED: DEXTROSE 31 GM ORAL.SUSP PO PRN (18:36)
[2022-12-28] MEDS ORDERED: cefTRIAXone 1 GM in DEXTROSE 5% IN WATER 50 ML IV SCH (18:36)
[2022-12-28] MEDS: 0.9 % SODIUM CHLORIDE 1,000 ML IV SCH (18:55)
[2022-12-28] MEDS: INSULIN LISPRO 1 UNIT/0.01 ML UNIT SQ SCH ×2 (19:05→21:14)
[2022-12-28] MEDS: PANTOPRAZOLE 40 MG TABLET PO SCH (21:18)
[2022-12-28] MEDS: ATENOLOL 25 MG TABLET PO SCH (21:19)
[2022-12-28] MEDS: DILTIAZEM 120 MG CAP.XL.24H PO SCH (21:19)
[2022-12-28] MEDS: SIMVASTATIN 10 MG TABLET PO SCH (21:19)
[2022-12-28] MEDS: 0.9 % SODIUM CHLORIDE 10 ML SYRINGE IV SCH (21:22)
[2022-12-29] MEDS: guaiFENesin/DEXTROMETHORPHAN 5ML UD CUP PO PRN ×2 (03:45→21:10)
[2022-12-29] MEDS: 0.9 % SODIUM CHLORIDE 1,000 ML IV SCH ×2 (05:11→16:23)
[2022-12-29] MEDS: 0.9 % SODIUM CHLORIDE 10 ML SYRINGE IV SCH ×3 (05:11→21:40)
[2022-12-29 06:21] LABS: Basophils # (Auto) 0.05 K/mcL (0.00-0.30); Basophils % (Auto) 0.3 % (0.0-2.0); Eosinophils # (Auto) 0.03 K/mcL (0.00-0.70); Eosinophils % (Auto) 0.2 % (0.0-7.0); Hematocrit 28.8 % (34.1-44.9); Lymphocytes # (Auto) 1.66 K/mcL (1.50-4.80); Lymphocytes % (Auto) 9.7 % (15.5-49.0); Mean Cell Volume 90.9 fL (80.0-100.0); Mean Corpuscular HGB Conc 34.7 g/dL (31.0-36.0); Mean Platelet Volume 8.8 fL (8.8-12.5); Monocytes # (Auto) 1.56 K/mcL (0.10-0.90); Monocytes % (Auto) 9.1 % (1.0-12.0); Neutrophils % (Auto) 79.8 % (38.0-78.0); Platelet Count 184 K/mcL (140-440); RBC 3.17 M/mcL (3.59-5.38); Red Cell Distribution Width 13.3 % (11.5-14.5); WBC 17.1 K/mcL (4.5-11.0)
[2022-12-29 06:42] LABS: ALT/SGPT 7 U/L (<40); AST/SGOT 11 U/L (<32); Albumin 2.8 gm/dL (3.2-5.2); Alkaline Phosphatase 60 U/L (39-117); Bilirubin,Total 0.3 mg/dL (0.1-1.0); Blood Urea Nitrogen 18 mg/dL (8-23); Calcium 7.9 mg/dL (8.6-10.4); Carbon Dioxide 16 mmol/L (22-30); Chloride 110 mmol/L (96-108); Estimated Average Glucose(eAG) 117 mg/dL; Globulin 2.7 gm/dL (2.2-3.7); Glomerular Filtration Rate 67; Glucose 99 mg/dL (70-105); Hemoglobin A1C 5.7 % Hgb (4.0-6.0)
[2022-12-29] MEDS: LEVOTHYROXINE 100 MCG TABLET PO SCH (07:19)
[2022-12-29] MEDS: INSULIN LISPRO 1 UNIT/0.01 ML UNIT SQ SCH ×4 (07:26→21:40)
[2022-12-29] MEDS: DILTIAZEM 120 MG CAP.XL.24H PO SCH ×2 (07:27→21:09)
[2022-12-29] MEDS: ENOXAPARIN 40 MG/0.4 ML SYRINGE SQ SCH (08:21)
[2022-12-29] MEDS: ASPIRIN 81 MG TAB.CHEW PO SCH (08:21)
[2022-12-29] MEDS: AZITHROMYCIN 500 MG in DEXTROSE 5% IN WATER 250 ML IV SCH (08:30)
[2022-12-29] MEDS: cefTRIAXone 1 GM VIAL IV SCH (08:31)
[2022-12-29] MEDS ORDERED: CRANBERRY 500 MG PO SCH (09:00)
[2022-12-29] MEDS ORDERED: NON FORMULARY MEDICATION 1 DOSE MISCELL (Acetaminophen 500 mg capsule) PO PRN (11:48)
[2022-12-29] MEDS ORDERED: SIMETHICONE 80 MG TAB.CHEW CHEWED PRN (11:51)
[2022-12-29] MEDS ORDERED: DIMETHICONE TOPICAL PRN (11:52)
--- NOTE | 2022-12-29 12:10 | Internal Med Progress Note ---
SUBJECTIVE Subjective Patient information: Note initiated : 12/29/22 at 12:07 pm Service Date, if different from initiated Date: [] Patient: Molly Balderas a 87 y/o F admitted on 12/28/22 for pneumonia/UTI. Chief Complaint: [] Interval history: Ms. Balderas is a 87 year old F history of type 2 diabetes mellitus, hypothyroidism, GERD, dyslipidemia, hypertensions, presenting with 1 day history of nausea vomiting and diarrhea. She is coming of nausea vomiting and diarrhea. In addition, she is coming of shortness of breath, nonproductive cough, as well as shaking chills. She denies having any subjective fever or diaphoresis. She denies having any dysuria. She denies recent travel or sick contact. She has some strength last night which was new for her. Vital signs at ED presentation only significant for mild tachypnea with rate of breathing in the mid 20s, rest of the vital signs within normal limits. Labs significant for lack of leukocytosis with WBC 6.7. Lactic acid 3.2-->2.4-->3.1. CT of the abdomen and pelvis showing left lower lobe pneumonia as well as left pyelonephritis/cystitis. Admission request is called for metabolic acidosis associated with pneumonia/UTI. 12/29: Patient had low-grade fever 37.9 overnight. Patient is currently on room air. All cultures no growth to date. Patient is complaining of improving degree of shortness of breath. She is complaining of productive cough. She is complaining of wheezing. She denies any chest pain. She denies any subjective fever or chills. Continue empiric antibiotics with Rocephin and azithromycin for left lower lobe pneumonia and urinary tract infections while monitoring for culture results. Overall condition guarded. Stay in [facility]. Constitutional Vitals: Vital Signs Temp Pulse Resp BP Pulse Ox O2 Del Method 37.2 C 87 20 120/50 96 Room Air 12/29/22 11:12/29/22 11:12/29/22 11:12/29/22 11:12/29/22 11:12/29/22 11:26 Period Temp Pulse Resp BP Sys/Rodrigues Pulse Ox O2 Del Method O2 Flow Rate Last 24 Hr 36.4 C-37.9 C 76-92 18- 103-133/47-80 92-99 Room Air-Room Air Intake and Output 12/29/22 12/29/22 12/29/22 03:59 11:59 19:59 Intake Total 240 1250 Output Total 750 800 Balance -510 450 Weight 67.217 kg Intake & Output: Intake & Output 12/29/22 12/29/22 12/29/22 03:59 11:59 19:59 Intake Total 240 1250 Output Total 750 800 Balance -510 450 Weight 67.217 kg Intake: IV 1250 Sodium Chloride 0.9% 1,000 ml @ 1000 100 mls/hr IV .Q10H [facility] Rx#: [id number] Zithromax 500 mg In Dextrose 5% 250 in Water 250 ml @ 250 mls/hr IV Q24H [facility] Rx#:[id number] Oral 240 Output: Void Amount 750 350 Urine/Stool Mix 450 Other: Urine Appearance Cloudy Cloudy Urine Color Yellow Light Stormy Urine Odor Normal Normal Stool Size Moderate Stool Color Brown Yellow Stool Consistency Watery Loose Head Head exam: Present atraumatic and normal inspection Eye Eye exam: Present normal appearance ENT ENT exam: Present mucous membranes moist, normal exam and normal external ear exam Neck Neck exam: Present normal inspection Respiratory Respiratory exam: Present decreased breath sounds Cardiovascular Cardiovascular exam: Present normal rate and rhythm GI/Abdominal GI/Abdominal exam: Present normal bowel sounds Back Exam Back exam: Present normal inspection Neurological Exam Neurological exam: Present alert and oriented X3 Skin Skin exam: Present intact and warm OBJ DATA Labs 12/29/22 05:16 12/29/22 05:16 Labs: Abnormal Lab Results 12/29/22 12/29/22 12/28/22 05:16 05:16 15:38 WBC 17.1 H RBC 3.17 L Hgb 10.0 L Hct 28.8 L MPV Immature Gran % (Auto) 0.9 H Neut % (Auto) 79.8 H Lymph % (Auto) 9.7 L Lymph # (Auto) [place] # (Auto) 1.56 H Immature Gran # 0.15 H Absolute Neutrophils 13.60 H POC VBG pH POC VBG pCO2 at Temp POC VBG HCO3 POC VBG Total CO2 POC Venous O2 Sat POC VBG Base Excess VBG Lactic Acid 3.5 H POC Chloride Chloride 110 H Carbon Dioxide 16 L POC Total CO2 POC BUN POC Glucose Calcium 7.9 L Total Protein 5.5 L Albumin 2.8 L Procalcitonin 12/28/22 12/28/22 12/28/22 12:33 12:16 09:34 WBC RBC Hgb Hct MPV Immature Gran % (Auto) Neut % (Auto) Lymph % (Auto) Lymph # (Auto) [place] # (Auto) Immature Gran # Absolute Neutrophils POC VBG pH 7.26 L 7.26 L POC VBG pCO2 at Temp 31.7 L 34.6 L POC VBG HCO3 14.4 L 15.6 L POC VBG Total CO2 15.0 L 17.0 L POC Venous O2 Sat 38.0 L POC VBG Base Excess -13.0 L -11.0 L VBG Lactic Acid 3.1 H 3.2 H 2.4 H POC Chloride Chloride Carbon Dioxide POC Total CO2 POC BUN POC Glucose Calcium Total Protein Albumin Procalcitonin 12/28/22 12/28/22 12/28/22 07:25 06:40 06:37 WBC RBC Hgb Hct MPV Immature Gran % (Auto) Neut % (Auto) Lymph % (Auto) Lymph # (Auto) [place] # (Auto) Immature Gran # Absolute Neutrophils POC VBG pH 7.25 L POC VBG pCO2 at Temp 31.9 L POC VBG HCO3 14.0 L POC VBG Total CO2 15.0 L POC Venous O2 Sat POC VBG Base Excess -13.0 L VBG Lactic Acid 3.2 H POC Chloride 116 H Chloride Carbon Dioxide POC Total CO2 16.0 L POC BUN 27 H POC Glucose 183 H Calcium Total Protein Albumin Procalcitonin 0.17 H 12/28/22 06:37 WBC RBC Hgb Hct MPV 8.4 L Immature Gran % (Auto) Neut % (Auto) 84.4 H Lymph % (Auto) 13.3 L Lymph # (Auto) 0.89 L [place] # (Auto) 0.07 L Immature Gran # Absolute Neutrophils POC VBG pH POC VBG pCO2 at Temp POC VBG HCO3 POC VBG Total CO2 POC Venous O2 Sat POC VBG Base Excess VBG Lactic Acid POC Chloride Chloride Carbon Dioxide POC Total CO2 POC BUN POC Glucose Calcium Total Protein Albumin Procalcitonin Meds: Medications Acetaminophen (Acetaminophen 325 Mg Tablet) 650 mg PO Q6HP PRN; Protocol PRN Reason: Per Pain Protocol/Fever > 101 Aspirin (Aspirin 81 Mg Tab.Chew) 81 mg PO QDAY [facility] Last Admin: 05/26/23 08:21 Dose: 81 mg Atenolol (Atenolol 25 Mg Tablet) 12.5 mg PO QHS [facility] Last Admin: 12/28/22 21:19 Dose: 12.5 mg Ceftriaxone Sodium (Ceftriaxone 1 Gm Vial) 1 gm IV Q24H [facility] Last Admin: 12/29/22 08:31 Dose: 1 gm Cyanocobalamin (Cyanocobalamin (Vitamin B-12) 500 Mcg Tablet) 1,000 mcg PO DAILY [facility] Dextrose (Dextrose 50% 50 Ml Vial) 0 ml IV UD PRN PRN Reason: Per Sliding Scale Diagnostic Test (Pha) (Accu-Chek 1 Each Strip) 1 each FS ACHS [facility] Last Admin: 12/29/22 11:23 Dose: 1 each Diltiazem HCl (Diltiazem 120 Mg Cap.Xl.24h) 120 mg PO BID [facility] Last Admin: 12/29/22 07:27 Dose: Not Given Enoxaparin Sodium (Enoxaparin 40 Mg/0.4 Ml Syringe) 40 mg SQ DAILY [facility] Last Admin: 12/29/22 08:21 Dose: 40 mg Glucose (Dextrose 31 Gm Oral.Susp) 15 gm PO PRN PRN PRN Reason: Hypoglycemia Guaifenesin (Guaifenesin/Dextromethorphan 5ml Ud Cup) 10 ml PO Q4HP PRN PRN Reason: Cough Last Admin: 12/29/22 03:45 Dose: 10 ml Hydralazine HCl (Hydralazine 20 Mg/Ml Vial) 10 mg IV Q4-6HP PRN PRN Reason: Hypertension Sodium Chloride (Sodium Chloride 0.9%) 1,000 mls @ 100 mls/hr IV .Q10H [facility] Last Admin: 12/29/22 05:11 Dose: 100 mls/hr Azithromycin 500 mg/ Dextrose 250 mls @ 250 mls/hr IV Q24H [facility]; Protocol Stop: 12/30/22 09:59 Last Infusion: 12/29/22 11:33 Dose: Infused Insulin Human Lispro (Insulin Lispro 1 Unit/0.01 Ml Unit) 0 unit SQ [facility]; Protocol Last Admin: 12/29/22 11:23 Dose: Not Given Iron Carb/Multivit/[place]der[place]ott/Folic Acid (Multivit,Ther Iron,Ca,Fa & Min 1 Tablet) 1 tab PO DAILY [facility] Levalbuterol HCl (Levalbuterol 1.25 Mg/3 Ml Ampul.Neb) 1.25 mg NEB Q4HP PRN PRN Reason: Shortness Of Breath Levalbuterol HCl (Levalbuterol 1.25 Mg/3 Ml Ampul.Neb) 1.25 mg NEB [id number] [facility] Levothyroxine Sodium (Levothyroxine 100 Mcg Tablet) 100 mcg PO ACB [facility] Last Admin: 12/29/22 07:19 Dose: 100 mcg Loperamide HCl (Loperamide 2 Mg Capsule) 2 mg PO PRN PRN PRN Reason: Diarrhea Magnesium Oxide (Magnesium Oxide 400 Mg Tablet) 400 mg PO QDAY [facility] Ondansetron HCl (Ondansetron 4 Mg/2 Ml Vial) 4 mg IV Q6HP PRN PRN Reason: Nausea And Vomiting Pantoprazole Sodium (Pantoprazole 40 Mg Tablet) 40 mg PO QHS [facility] Last Admin: 12/28/22 21:18 Dose: 40 mg Dimethicone 5 % (Cream) 1 dose TOPICAL QIDP PRN PRN Reason: Skin Irritation Prochlorperazine (Prochlorperazine 10 Mg/2 Ml Vial) 5 mg IV Q4HP PRN PRN Reason: Nausea And Vomiting Promethazine HCl (Promethazine 25 Mg/Ml Vial) 12.5 mg IV Q6HP PRN PRN Reason: Nausea And Vomiting Simethicone (Simethicone 80 Mg Tab.Chew) 80 mg CHEWED QIDP PRN PRN Reason: Abdominal Discomfort Simvastatin (Simvastatin 10 Mg Tablet) 10 mg PO HS [facility] Last Admin: 12/28/22 21:19 Dose: 10 mg Sodium Chloride (0.9 % Sodium Chloride 10 Ml Syringe) 10 ml IV Q8 [facility] Last Admin: 12/29/22 05:11 Dose: Not Given Trazodone HCl (Trazodone Hcl 50 Mg Tablet) 25 mg PO HSP PRN PRN Reason: Insomnia Vitamin D (Vitamin D3 25 Mcg Tablet) 25 mcg PO BID [facility] A/P Assessment and plan (1) Essential hypertension: Status: Chronic (2) Diabetes mellitus: Status: Chronic (3) Hyperlipidemia: Status: Chronic (4) Hypothyroidism: Status: Chronic (5) Diabetes mellitus type II, controlled: Status: Chronic (6) Urinary tract infection: Status: Chronic (7) LLL pneumonia: Status: Acute Narrative A/P Narrative: Assessment and Plans: 1. Left lower lobe pneumonia: Observation med surg Supplemental oxygen therapy titrate to achieve spo2>92% as needed Serial lactic acid Procalcitonin level 0.17 Respiratory panel negative Blood culture, no growth to date cbc w/ auto diff in the morning to trend WBC s/p IV fluid bolus given in the ED, to be followed by NS@100cc/hr Rocephin Zithromax Robitussin DM Xopenex PRN respiratory wheezing Physical therapy evaluation and treatment 2. UTI (cystitis vs left pyelonephritis): Serial lactic acid Procalcitonin level 0.17 Urine culture, no growth to date Blood culture, no growth to date cbc w/ auto diff in the morning to trend WBC s/p IV fluid bolus given in the ED, to be followed by NS@100cc/hr Rocephin 3. T2DM: HgA1c Insulin Lispro SSI AC HS Accu Check AC HS Hypoglycemia protocol Diabetic diet 4. Essential hypertension: Atenolol Diltiazem Hydralazine 10mg IV q4-6hr PRN SBP>=180 and/or DBP>=110mmHg 5. Hypothyroidism: Continue thyroid replacement therapy 6. Hyperlipidemia: Continue statin therapy 7. GERD: Protonix GI ppx: Protonix DVT ppx: Lovenox Code status: Full Prognosis: guarded Disposition: observation med surg Time Spent With Patient Time: Total time spent is greater than 50% in coordination of care (as documented) at patient's floor/unit and/or counseling patient: Subsequent: Total time with patient: 35 - 49 minutes QUALITY Stroke Symptom Onset Unknown: No VTE Deep Vein Thrombosis/Pulmonary Embolism Present on Admission: No
[2022-12-29] MEDS ORDERED: LEVALBUTEROL 1.25 MG/3 ML AMPUL.NEB NEB SCH (15:00)
[2022-12-29] MEDS: PANTOPRAZOLE 40 MG TABLET PO SCH (21:09)
[2022-12-29] MEDS: ATENOLOL 25 MG TABLET PO SCH (21:09)
[2022-12-29] MEDS: SIMVASTATIN 10 MG TABLET PO SCH (21:09)
[2022-12-29] MEDS: VITAMIN D3 25 MCG TABLET PO SCH (21:09)
[2022-12-30] MEDS: 0.9 % SODIUM CHLORIDE 1,000 ML IV SCH ×2 (00:40→05:51)
[2022-12-30] MEDS: 0.9 % SODIUM CHLORIDE 10 ML SYRINGE IV SCH ×3 (05:59→20:02)
[2022-12-30 06:20] LABS: Basophils # (Auto) 0.05 K/mcL (0.00-0.30); Basophils % (Auto) 0.3 % (0.0-2.0); Eosinophils # (Auto) 0.08 K/mcL (0.00-0.70); Eosinophils % (Auto) 0.4 % (0.0-7.0); Hematocrit 28.2 % (34.1-44.9); Hemoglobin 9.2 g/dL (11.2-15.7); Lymphocytes # (Auto) 1.43 K/mcL (1.50-4.80); Mean Cell Volume 94.9 fL (80.0-100.0); Mean Corpuscular HGB Conc 32.6 g/dL (31.0-36.0); Mean Platelet Volume 8.6 fL (8.8-12.5); Monocytes # (Auto) 1.16 K/mcL (0.10-0.90); Monocytes % (Auto) 6.5 % (1.0-12.0); Neutrophils % (Auto) 83.1 % (38.0-78.0); Platelet Count 187 K/mcL (140-440); RBC 2.97 M/mcL (3.59-5.38); Red Cell Distribution Width 13.6 % (11.5-14.5); WBC 17.9 K/mcL (4.5-11.0)
[2022-12-30] MEDS: LEVOTHYROXINE 100 MCG TABLET PO SCH (07:39)
[2022-12-30] MEDS: INSULIN LISPRO 1 UNIT/0.01 ML UNIT SQ SCH ×4 (07:39→20:02)
[2022-12-30] MEDS: VITAMIN D3 25 MCG TABLET PO SCH ×2 (08:29→20:31)
[2022-12-30] MEDS: MULTIVIT,THER IRON,CA,FA & MIN 1 TABLET PO SCH (08:29)
[2022-12-30] MEDS: DILTIAZEM 120 MG CAP.XL.24H PO SCH ×2 (08:29→20:31)
[2022-12-30] MEDS: CYANOCOBALAMIN (VITAMIN B-12) 500 MCG TABLET PO SCH (08:29)
[2022-12-30] MEDS: ENOXAPARIN 40 MG/0.4 ML SYRINGE SQ SCH (08:29)
[2022-12-30] MEDS: MAGNESIUM OXIDE 400 MG TABLET PO SCH (08:29)
[2022-12-30] MEDS: ASPIRIN 81 MG TAB.CHEW PO SCH (08:29)
[2022-12-30] MEDS ORDERED: METHYLSULFONYLMETHANE 1000 MG PO SCH (09:00)
[2022-12-30] MEDS: AZITHROMYCIN 500 MG in DEXTROSE 5% IN WATER 250 ML IV SCH ×2 (09:46→09:58)
[2022-12-30] MEDS: cefTRIAXone 1 GM VIAL IV SCH (09:46)
[2022-12-30] MEDS ORDERED: VANCOMYCIN PER PHARMACY IV SCH (09:53)
--- NOTE | 2022-12-30 10:05 | Internal Med Progress Note ---
SUBJECTIVE Subjective Patient information: Note initiated : 12/30/22 at 10:02 am Service Date, if different from initiated Date: [] Patient: Molly Balderas a 87 y/o F admitted on 12/28/22 for pneumonia/UTI. Chief Complaint: [] Interval history: Ms. Balderas is a 87 year old F history of type 2 diabetes mellitus, hypothyroidism, GERD, dyslipidemia, hypertensions, presenting with 1 day history of nausea vomiting and diarrhea. She is coming of nausea vomiting and diarrhea. In addition, she is coming of shortness of breath, nonproductive cough, as well as shaking chills. She denies having any subjective fever or diaphoresis. She denies having any dysuria. She denies recent travel or sick contact. She has some strength last night which was new for her. Vital signs at ED presentation only significant for mild tachypnea with rate of breathing in the mid 20s, rest of the vital signs within normal limits. Labs significant for lack of leukocytosis with WBC 6.7. Lactic acid 3.2-->2.4-->3.1. CT of the abdomen and pelvis showing left lower lobe pneumonia as well as left pyelonephritis/cystitis. Admission request is called for metabolic acidosis associated with pneumonia/UTI. 12/29: Patient had low-grade fever 37.9 overnight. Patient is currently on room air. All cultures no growth to date. Patient is complaining of improving degree of shortness of breath. She is complaining of productive cough. She is complaining of wheezing. She denies any chest pain. She denies any subjective fever or chills. Continue empiric antibiotics with Rocephin and azithromycin for left lower lobe pneumonia and urinary tract infections while monitoring for culture results. Overall condition guarded. Stay in [facility]. 12/30: Low-grade fever Tmax 37.3 overnight and this morning. WBC Climbing to 17.9 this morning. Urine culture growing gram-negative bacillus, identity and sensitivity pending. Blood culture no growth to date. Patient have chills. She denies any fever or diaphoresis. She had 1 loose stool overnight but denies any nausea or vomiting. She denies any shortness of breath. She denies any cough. She denies any dysuria. Saline lock patient. Switch antibiotics from Rocephin and Zithromax to vancomycin and Zosyn. MRSA screening. C. difficile toxin PCR screening. Overall condition guarded. Stay in [facility]. Constitutional Vitals: Vital Signs Temp Pulse Resp BP Pulse Ox O2 Del Method 37.3 C H 85 22 124/57 91 Room Air 12/30/22 08:00 12/30/22 08:00 12/30/22 08:00 12/30/22 08:00 12/30/22 08:00 12/30/22 08:00 Period Temp Pulse Resp BP Sys/Rodrigues Pulse Ox O2 Del Method O2 Flow Rate Last 24 Hr 36.9 C-37.8 C 83-98 17-22 120-153/50-64 91-97 Room Air-Room Air Intake and Output 12/29/22 12/30/22 12/30/22 19:59 03:59 11:59 Intake Total 2440 933 1459 Output Total 1050 150 251 Balance 5470 774 4385 Weight 68.765 kg Intake & Output: Intake & Output 12/29/22 12/30/22 12/30/22 19:59 03:59 11:59 Intake Total 2440 933 1459 Output Total 1050 150 251 Balance 8444 596 1242 Weight 68.765 kg Intake: IV 1000 533 879 Sodium Chloride 0.9% 1,000 ml @ 1000 533 879 100 mls/hr IV .Q10H [facility] Rx#: [id number] Oral 1440 400 580 Output: Void Amount 1050 150 250 # of times incontinent of urine 1 Other: Meal Lunch Breakfast Percent of Meal Consumed 25% 75% Feeding Ability Independent Urine Appearance Clear Clear Clear Urine Color Yellow Yellow Yellow Urine Odor Normal Normal Normal Stool Size Large Stool Color Brown Stool Consistency Liquid Watery Head Head exam: Present atraumatic and normal inspection Eye Eye exam: Present normal appearance ENT ENT exam: Present mucous membranes moist, normal exam and normal external ear exam Neck Neck exam: Present normal inspection Respiratory Respiratory exam: Present normal respiratory exam Cardiovascular Cardiovascular exam: Present normal rate and rhythm GI/Abdominal GI/Abdominal exam: Present normal bowel sounds Back Exam Back exam: Present normal inspection Neurological Exam Neurological exam: Present alert and oriented X3 Skin Skin exam: Present intact and warm OBJ DATA Labs 12/30/22 05:07 12/29/22 05:16 Labs: Abnormal Lab Results 12/30/22 12/29/22 12/29/22 05:07 12:39 05:16 WBC 17.9 H RBC 2.97 L Hgb 9.2 L Hct 28.2 L MPV 8.6 L Immature Gran % (Auto) 1.7 H Neut % (Auto) 83.1 H Lymph % (Auto) 8.0 L Lymph # (Auto) 1.43 L [place] # (Auto) 1.16 H Immature Gran # 0.30 H Absolute Neutrophils 14.91 H POC VBG pH POC VBG pCO2 at Temp POC VBG HCO3 POC VBG Total CO2 POC Venous O2 Sat POC VBG Base Excess VBG Lactic Acid 2.6 H POC Chloride Chloride 110 H Carbon Dioxide 16 L POC Total CO2 POC BUN POC Glucose Calcium 7.9 L Total Protein 5.5 L Albumin 2.8 L Procalcitonin 12/29/22 12/28/22 12/28/22 05:16 15:38 12:33 WBC 17.1 H RBC 3.17 L Hgb 10.0 L Hct 28.8 L MPV Immature Gran % (Auto) 0.9 H Neut % (Auto) 79.8 H Lymph % (Auto) 9.7 L Lymph # (Auto) [place] # (Auto) 1.56 H Immature Gran # 0.15 H Absolute Neutrophils 13.60 H POC VBG pH POC VBG pCO2 at Temp POC VBG HCO3 POC VBG Total CO2 POC Venous O2 Sat POC VBG Base Excess VBG Lactic Acid 3.5 H 3.1 H POC Chloride Chloride Carbon Dioxide POC Total CO2 POC BUN POC Glucose Calcium Total Protein Albumin Procalcitonin 12/28/22 12/28/22 12/28/22 12:16 09:34 07:25 WBC RBC Hgb Hct MPV Immature Gran % (Auto) Neut % (Auto) Lymph % (Auto) Lymph # (Auto) [place] # (Auto) Immature Gran # Absolute Neutrophils POC VBG pH 7.26 L 7.26 L 7.25 L POC VBG pCO2 at Temp 31.7 L 34.6 L 31.9 L POC VBG HCO3 14.4 L 15.6 L 14.0 L POC VBG Total CO2 15.0 L 17.0 L 15.0 L POC Venous O2 Sat 38.0 L POC VBG Base Excess -13.0 L -11.0 L -13.0 L VBG Lactic Acid 3.2 H 2.4 H 3.2 H POC Chloride Chloride Carbon Dioxide POC Total CO2 POC BUN POC Glucose Calcium Total Protein Albumin Procalcitonin 12/28/22 12/28/22 12/28/22 06:40 06:37 06:37 WBC RBC Hgb Hct MPV 8.4 L Immature Gran % (Auto) Neut % (Auto) 84.4 H Lymph % (Auto) 13.3 L Lymph # (Auto) 0.89 L [place] # (Auto) 0.07 L Immature Gran # Absolute Neutrophils POC VBG pH POC VBG pCO2 at Temp POC VBG HCO3 POC VBG Total CO2 POC Venous O2 Sat POC VBG Base Excess VBG Lactic Acid POC Chloride 116 H Chloride Carbon Dioxide POC Total CO2 16.0 L POC BUN 27 H POC Glucose 183 H Calcium Total Protein Albumin Procalcitonin 0.17 H Meds: Medications Acetaminophen (Acetaminophen 325 Mg Tablet) 650 mg PO Q6HP PRN; Protocol PRN Reason: Per Pain Protocol/Fever > 101 Aspirin (Aspirin 81 Mg Tab.Chew) 81 mg PO QDAY [facility] Last Admin: 12/30/22 08:29 Dose: 81 mg Atenolol (Atenolol 25 Mg Tablet) 12.5 mg PO QHS [facility] Last Admin: 12/29/22 21:09 Dose: 12.5 mg Cyanocobalamin (Cyanocobalamin (Vitamin B-12) 500 Mcg Tablet) 1,000 mcg PO DAILY [facility] Last Admin: 12/30/22 08:29 Dose: 1,000 mcg Dextrose (Dextrose 50% 50 Ml Vial) 0 ml IV UD PRN PRN Reason: Per Sliding Scale Diagnostic Test (Pha) (Accu-Chek 1 Each Strip) 1 each FS ACHS [facility] Last Admin: 12/30/22 07:30 Dose: 1 each Diltiazem HCl (Diltiazem 120 Mg Cap.Xl.24h) 120 mg PO BID [facility] Last Admin: 12/30/22 08:29 Dose: 120 mg Enoxaparin Sodium (Enoxaparin 40 Mg/0.4 Ml Syringe) 40 mg SQ DAILY [facility] Last Admin: 12/30/22 08:29 Dose: 40 mg Glucose (Dextrose 31 Gm Oral.Susp) 15 gm PO PRN PRN PRN Reason: Hypoglycemia Guaifenesin (Guaifenesin/Dextromethorphan 5ml Ud Cup) 10 ml PO Q4HP PRN PRN Reason: Cough Last Admin: 12/29/22 21:10 Dose: 10 ml Hydralazine HCl (Hydralazine 20 Mg/Ml Vial) 10 mg IV Q4-6HP PRN PRN Reason: Hypertension Piperacillin Sod/Tazobactam (Sod 3.375 gm/ Dextrose) 50 mls @ 100 mls/hr IV Q6H [facility]; Protocol Vancomycin HCl 1,000 mg/ (Sodium Chloride) 250 mls @ 250 mls/hr IV Q24H [facility] Insulin Human Lispro (Insulin Lispro 1 Unit/0.01 Ml Unit) 0 unit SQ ACHS [facility]; Protocol Last Admin: 12/30/22 07:39 Dose: Not Given Iron Carb/Multivit/[place]il [place]/Folic Acid (Multivit,Ther Iron,Ca,Fa & Min 1 Tablet) 1 tab PO DAILY [facility] Last Admin: 12/30/22 08:29 Dose: 1 tab Levalbuterol HCl (Levalbuterol 1.25 Mg/3 Ml Ampul.Neb) 1.25 mg NEB Q4HP PRN PRN Reason: Shortness Of Breath Levothyroxine Sodium (Levothyroxine 100 Mcg Tablet) 100 mcg PO ACB [facility] Last Admin: 12/30/22 07:39 Dose: 100 mcg Loperamide HCl (Loperamide 2 Mg Capsule) 2 mg PO PRN PRN PRN Reason: Diarrhea Magnesium Oxide (Magnesium Oxide 400 Mg Tablet) 400 mg PO QDAY [facility] Last Admin: 12/30/22 08:29 Dose: 400 mg Ondansetron HCl (Ondansetron 4 Mg/2 Ml Vial) 4 mg IV Q6HP PRN PRN Reason: Nausea And Vomiting Pantoprazole Sodium (Pantoprazole 40 Mg Tablet) 40 mg PO QHS [facility] Last Admin: 12/29/22 21:09 Dose: 40 mg Dimethicone 5 % (Cream) 1 dose TOPICAL QIDP PRN PRN Reason: Skin Irritation Prochlorperazine (Prochlorperazine 10 Mg/2 Ml Vial) 5 mg IV Q4HP PRN PRN Reason: Nausea And Vomiting Promethazine HCl (Promethazine 25 Mg/Ml Vial) 12.5 mg IV Q6HP PRN PRN Reason: Nausea And Vomiting Simethicone (Simethicone 80 Mg Tab.Chew) 80 mg CHEWED QIDP PRN PRN Reason: Abdominal Discomfort Simvastatin (Simvastatin 10 Mg Tablet) 10 mg PO HS [facility] Last Admin: 12/29/22 21:09 Dose: 10 mg Sodium Chloride (0.9 % Sodium Chloride 10 Ml Syringe) 10 ml IV Q8 [facility] Last Admin: 12/30/22 05:59 Dose: Not Given Trazodone HCl (Trazodone Hcl 50 Mg Tablet) 25 mg PO HSP PRN PRN Reason: Insomnia Vancomycin HCl (Vancomycin Per Pharmacy) 1 order IV UD [facility]; Protocol Vitamin D (Vitamin D3 25 Mcg Tablet) 25 mcg PO BID [facility] Last Admin: 12/30/22 08:29 Dose: 25 mcg A/P Assessment and plan (1) Essential hypertension: Status: Chronic (2) Diabetes mellitus: Status: Chronic (3) Hyperlipidemia: Status: Chronic (4) Hypothyroidism: Status: Chronic (5) Diabetes mellitus type II, controlled: Status: Chronic (6) Urinary tract infection: Status: Chronic (7) LLL pneumonia: Status: Acute Narrative A/P Narrative: Assessment and Plans: 1. Left lower lobe pneumonia: Observation-->inpatient med surg Supplemental oxygen therapy titrate to achieve spo2>92% as needed Serial lactic acid Procalcitonin level 0.17 Respiratory panel negative Blood culture, no growth to date cbc w/ auto diff in the morning to trend WBC Saline lock d/c Rocephin, Zithromax, switch to Vancomycin and Zosyn MRSA screening C diff toxin PCR screening given loose stool Robitussin DM Xopenex PRN respiratory wheezing Physical therapy evaluation and treatment 2. UTI (cystitis vs left pyelonephritis): Serial lactic acid Procalcitonin level 0.17 Urine culture, gram negative bacillus Blood culture, no growth to date cbc w/ auto diff in the morning to trend WBC Saline lock d/c Rocephin, Zithromax, switch to Vancomycin and Zosyn MRSA screening 3. T2DM: HgA1c 5.7 Insulin Lispro SSI AC HS Accu Check AC Hypoglycemia protocol Diabetic diet 4. Essential hypertension: Atenolol Diltiazem Hydralazine 10mg IV q4-6hr PRN SBP>=180 and/or DBP>=110mmHg 5. Hypothyroidism: Continue thyroid replacement therapy 6. Hyperlipidemia: Continue statin therapy 7. GERD: Protonix GI ppx: Protonix DVT ppx: Lovenox Code status: DNR Prognosis: guarded Disposition: observation-->inpatient med surg Time Spent With Patient Time: Total time spent is greater than 50% in coordination of care (as documented) at patient's floor/unit and/or counseling patient: Subsequent: Total time with patient: 35 - 49 minutes QUALITY Stroke Symptom Onset Unknown: No VTE Deep Vein Thrombosis/Pulmonary Embolism Present on Admission: No
[2022-12-30 10:25] LABS: ALT/SGPT 7 U/L (<40); AST/SGOT 11 U/L (<32); Albumin 2.6 gm/dL (3.2-5.2); Alkaline Phosphatase 75 U/L (39-117); Bilirubin,Total 0.4 mg/dL (0.1-1.0); Blood Urea Nitrogen 14 mg/dL (8-23); Calcium 7.8 mg/dL (8.6-10.4); Carbon Dioxide 15 mmol/L (22-30); Chloride 111 mmol/L (96-108); Globulin 2.7 gm/dL (2.2-3.7); Glomerular Filtration Rate 79; Glucose 105 mg/dL (70-105)
[2022-12-30] MEDS: PIPERACILLIN SODIUM/TAZOBACTAM 3.375 GM in DEXTROSE 5% IN WATER 50 ML IV SCH ×3 (11:06→17:34)
[2022-12-30] MEDS: VANCOMYCIN 1,000 MG in 0.9 % SODIUM CHLORIDE 250 ML IV SCH (11:50)
[2022-12-30] MEDS: LEVALBUTEROL 1.25 MG/3 ML AMPUL.NEB NEB PRN (17:12)
[2022-12-30] MEDS: SIMVASTATIN 10 MG TABLET PO SCH (20:30)
[2022-12-30] MEDS: ATENOLOL 25 MG TABLET PO SCH (20:30)
[2022-12-30] MEDS: PANTOPRAZOLE 40 MG TABLET PO SCH (20:32)
[2022-12-31] MEDS: 0.9 % SODIUM CHLORIDE 10 ML SYRINGE IV SCH ×4 (00:12→21:15)
[2022-12-31] MEDS: PIPERACILLIN SODIUM/TAZOBACTAM 3.375 GM in DEXTROSE 5% IN WATER 50 ML IV SCH ×4 (00:12→17:58)
[2022-12-31] MEDS: LEVALBUTEROL 1.25 MG/3 ML AMPUL.NEB NEB PRN ×2 (04:55→21:19)
[2022-12-31] MEDS: LEVOTHYROXINE 100 MCG TABLET PO SCH (07:39)
[2022-12-31 07:50] LABS: Basophils # (Auto) 0.05 K/mcL (0.00-0.30); Basophils % (Auto) 0.3 % (0.0-2.0); Hematocrit 28.9 % (34.1-44.9); Hemoglobin 10.1 g/dL (11.2-15.7); Lymphocytes # (Auto) 1.93 K/mcL (1.50-4.80); Lymphocytes % (Auto) 12.8 % (15.5-49.0); Mean Cell Volume 91.2 fL (80.0-100.0); Mean Corpuscular HGB Conc 34.9 g/dL (31.0-36.0); Mean Platelet Volume 9.1 fL (8.8-12.5); Monocytes # (Auto) 1.63 K/mcL (0.10-0.90); Monocytes % (Auto) 10.8 % (1.0-12.0); Platelet Count 179 K/mcL (140-440); RBC 3.17 M/mcL (3.59-5.38); Red Cell Distribution Width 13.4 % (11.5-14.5); WBC 15.1 K/mcL (4.5-11.0)
[2022-12-31] MEDS: INSULIN LISPRO 1 UNIT/0.01 ML UNIT SQ SCH ×2 (08:55→17:22)
[2022-12-31] MEDS: MULTIVIT,THER IRON,CA,FA & MIN 1 TABLET PO SCH (09:03)
[2022-12-31] MEDS: CYANOCOBALAMIN (VITAMIN B-12) 500 MCG TABLET PO SCH (09:03)
[2022-12-31] MEDS: VITAMIN D3 25 MCG TABLET PO SCH ×2 (09:03→21:14)
[2022-12-31] MEDS: DILTIAZEM 120 MG CAP.XL.24H PO SCH ×2 (09:03→21:13)
[2022-12-31] MEDS: ASPIRIN 81 MG TAB.CHEW PO SCH (09:04)
[2022-12-31] MEDS: MAGNESIUM OXIDE 400 MG TABLET PO SCH (09:04)
[2022-12-31] MEDS: VANCOMYCIN 1,000 MG in 0.9 % SODIUM CHLORIDE 250 ML IV SCH (09:56)
[2022-12-31] MEDS: ENOXAPARIN 40 MG/0.4 ML SYRINGE SQ SCH (11:27)
--- NOTE | 2022-12-31 11:27 | Internal Med Progress Note ---
SUBJECTIVE Subjective Patient information: Note initiated : 12/31/22 at 11:17 am Service Date, if different from initiated Date: [] Patient: Molly Balderas a 87 y/o F admitted on 12/30/22 for pneumonia/UTI. Chief Complaint: [] Additional PMFSH (Level 3 Only): Interval history: Ms. Balderas is a 87 year old F history of type 2 diabetes mellitus, hypothyroidism, GERD, dyslipidemia, hypertensions, presenting with 1 day history of nausea vomiting and diarrhea. She is coming of nausea vomiting and diarrhea. In addition, she is coming of shortness of breath, nonproductive cough, as well as shaking chills. She denies having any subjective fever or diaphoresis. She denies having any dysuria. She denies recent travel or sick contact. She has some strength last night which was new for her. Vital signs at ED presentation only significant for mild tachypnea with rate of breathing in the mid 20s, rest of the vital signs within normal limits. Labs significant for lack of leukocytosis with WBC 6.7. Lactic acid 3.2-->2.4-->3.1. CT of the abdomen and pelvis showing left lower lobe pneumonia as well as left pyelonephritis/cystitis. Admission request is called for metabolic acidosis associated with pneumonia/UTI. 12/29: Patient had low-grade fever 37.9 overnight. Patient is currently on room air. All cultures no growth to date. Patient is complaining of improving degree of shortness of breath. She is complaining of productive cough. She is complaining of wheezing. She denies any chest pain. She denies any subjective fever or chills. Continue empiric antibiotics with Rocephin and azithromycin for left lower lobe pneumonia and urinary tract infections while monitoring for culture results. Overall condition guarded. Stay in [facility]. 12/30: Low-grade fever Tmax 37.3 overnight and this morning. WBC Climbing to 17.9 this morning. Urine culture growing gram-negative bacillus, identity and sensitivity pending. Blood culture no growth to date. Patient have chills. She denies any fever or diaphoresis. She had 1 loose stool overnight but denies any nausea or vomiting. She denies any shortness of breath. She denies any cough. She denies any dysuria. Saline lock patient. Switch antibiotics from Rocephin and Zithromax to vancomycin and Zosyn. MRSA screening. C. difficile toxin PCR screening. Overall condition guarded. Stay in [facility]. 12/31: Patient had Tmax of 99.3 F overnight, leukocytosis is 15.1 improved from 17.9 yesterday. Hemoglobin 10.1. Patient reports she has history of MRSA skin infection at least twice. Her MRSA PCR in-house is negative. Blood culture has been negative. Patient reports some cough and some bronchospasm and chest tightness. She reported she was exposed to passive smoking but has never been a smoker herself. Her urine culture grew pansensitive E. coli. Patient states her diabetic control has always been very good, she is requesting BG's to be checked only twice a day. Review of systems 12 point review of system was completed Low-grade fever overnight, no chills No chest pain or palpitations Some cough remains, patient has some chest tightness No nausea or vomiting Alert and oriented Denies any depression Physical examination Head Head exam: Present atraumatic and normal inspection Eye Eye exam: Present normal appearance ENT ENT exam: Present mucous membranes moist, normal exam and normal external ear exam Neck Neck exam: Present normal inspection Respiratory Respiratory exam: mild scattered rales present, no respiratory distress Cardiovascular Cardiovascular exam: Present normal rate and rhythm GI/Abdominal GI/Abdominal exam: Present normal bowel sounds Back Exam Back exam: Present normal inspection Neurological Exam Neurological exam: Present alert and oriented X3 Skin Skin exam: Present intact and warm Assessment and Plan: 1. Left lower lobe pneumonia: Observation-->inpatient med surg Patient leukocytosis was worsening, antibiotics were changed from ceftriaxone azithromycin to vancomycin and Zosyn Patient has history of MRSA skin infection x2. MRSA screen in house negative Currently on vancomycin and Zosyn Serial lactic acid Procalcitonin level 0.17 Respiratory panel negative Blood culture, no growth to date C diff toxin PCR screening given loose stool Robitussin DM Xopenex PRN respiratory wheezing Physical therapy evaluation and treatment 2. UTI (cystitis vs left pyelonephritis): Urine culture positive for pansensitive E. coli Blood culture, no growth to date Zosyn will cover 3. T2DM: HgA1c 5.7 Insulin Lispro SSI AC HS Blood glucose check twice daily per patient request Hypoglycemia protocol Diabetic diet 4. Essential hypertension: Atenolol Diltiazem Hydralazine 10mg IV q4-6hr PRN SBP>=180 and/or DBP>=110mmHg 5. Hypothyroidism: Continue thyroid replacement therapy 6. Hyperlipidemia: Continue statin therapy 7. GERD: Protonix GI ppx: Protonix DVT ppx: Lovenox Code status: DNR Prognosis: guarded Disposition: observation-->inpatient med surg Time Spent With Patient Time: Total time spent is greater than 50% in coordination of care (as documented) at patient's floor/unit and/or counseling patient: Subsequent: Total time with patient: 35 - 49 minutes Constitutional Vitals: Vital Signs Temp Pulse Resp BP Pulse Ox O2 Del Method 99.1 F H 77 22 112/69 92 Room Air 12/31/22 08:00 12/31/22 08:00 12/31/22 08:00 12/31/22 08:00 12/31/22 08:00 12/31/22 08:00 Period Temp Pulse Resp BP Sys/Rodrigues Pulse Ox O2 Del Method O2 Flow Rate Last 24 Hr 98.8 F-100.0 F 67-82 17-24 112-141/50-69 89-99 Room Air-Room Air Intake and Output 12/30/22 12/31/22 12/31/22 19:59 03:59 11:59 Intake Total 1310 650 50 Output Total 300 600 300 Balance 1010 50 -250 Weight 69.581 kg Intake & Output: Intake & Output 12/30/22 12/31/22 12/31/22 19:59 03:59 11:59 Intake Total 1310 650 50 Output Total 300 600 300 Balance 1010 50 -250 Weight 69.581 kg Intake: IV 350 50 50 Sodium Chloride 0.9% 1,000 ml @ 0 100 mls/hr IV .Q10H JG Rx#: [id number] Zosyn 3.375 gm In Dextrose 5% 100 50 50 in Water 50 ml @ 100 mls/hr IV Q6H [facility] Rx#:[id number] Vancomycin 1,000 mg In Sodium 250 Chloride 0.9% 250 ml @ 250 mls/ hr IV Q24H JG Rx#:[id number] Oral 960 600 Output: Void Amount 300 600 300 Other: Meal Dinner Percent of Meal Consumed 0% Feeding Ability Assist with Tray Set Up Urine Appearance Clear Clear Clear Urine Color Dark Yellow Yellow Yellow Urine Odor Normal Normal OBJ DATA Labs 12/31/22 05:38 12/30/22 05:07 Labs: Abnormal Lab Results 12/31/22 12/30/22 12/30/22 05:38 05:07 05:07 WBC 15.1 H 17.9 H RBC 3.17 L 2.97 L Hgb 10.1 L 9.2 L Hct 28.9 L 28.2 L MPV 8.6 L Immature Gran % (Auto) 1.1 H 1.7 H Neut % (Auto) 83.1 H Lymph % (Auto) 12.8 L 8.0 L Lymph # (Auto) 1.43 L [place] # (Auto) 1.63 H 1.16 H Immature Gran # 0.17 H 0.30 H Absolute Neutrophils 11.03 H 14.91 H POC VBG pH POC VBG pCO2 at Temp POC VBG HCO3 POC VBG Total CO2 POC VBG Base Excess VBG Lactic Acid Chloride 111 H Carbon Dioxide 15 L Calcium 7.8 L Total Protein 5.3 L Albumin 2.6 L Procalcitonin 12/29/22 12/29/22 12/29/22 12:39 05:16 05:16 WBC 17.1 H RBC 3.17 L Hgb 10.0 L Hct 28.8 L MPV Immature Gran % (Auto) 0.9 H Neut % (Auto) 79.8 H Lymph % (Auto) 9.7 L Lymph # (Auto) [place] # (Auto) 1.56 H Immature Gran # 0.15 H Absolute Neutrophils 13.60 H POC VBG pH POC VBG pCO2 at Temp POC VBG HCO3 POC VBG Total CO2 POC VBG Base Excess VBG Lactic Acid 2.6 H Chloride 110 H Carbon Dioxide 16 L Calcium 7.9 L Total Protein 5.5 L Albumin 2.8 L Procalcitonin 12/28/22 12/28/22 12/28/22 15:38 12:33 12:16 WBC RBC Hgb Hct MPV Immature Gran % (Auto) Neut % (Auto) Lymph % (Auto) Lymph # (Auto) [place] # (Auto) Immature Gran # Absolute Neutrophils POC VBG pH 7.26 L POC VBG pCO2 at Temp 31.7 L POC VBG HCO3 14.4 L POC VBG Total CO2 15.0 L POC VBG Base Excess -13.0 L VBG Lactic Acid 3.5 H 3.1 H 3.2 H Chloride Carbon Dioxide Calcium Total Protein Albumin Procalcitonin 12/28/22 06:37 WBC RBC Hgb Hct MPV Immature Gran % (Auto) Neut % (Auto) Lymph % (Auto) Lymph # (Auto) [place] # (Auto) Immature Gran # Absolute Neutrophils POC VBG pH POC VBG pCO2 at Temp POC VBG HCO3 POC VBG Total CO2 POC VBG Base Excess VBG Lactic Acid Chloride Carbon Dioxide Calcium Total Protein Albumin Procalcitonin 0.17 H Meds: Medications Acetaminophen (Acetaminophen 325 Mg Tablet) 650 mg PO Q6HP PRN; Protocol PRN Reason: Per Pain Protocol/Fever > 101 Aspirin (Aspirin 81 Mg Tab.Chew) 81 mg PO QDAY [facility] Last Admin: 12/31/22 09:04 Dose: 81 mg Atenolol (Atenolol 25 Mg Tablet) 12.5 mg PO QHS [facility] Last Admin: 12/30/22 20:30 Dose: 12.5 mg Cyanocobalamin (Cyanocobalamin (Vitamin B-12) 500 Mcg Tablet) 1,000 mcg PO DAILY [facility] Last Admin: 12/31/22 09:03 Dose: 1,000 mcg Dextrose (Dextrose 50% 50 Ml Vial) 0 ml IV UD PRN PRN Reason: Per Sliding Scale Diagnostic Test (Pha) (Accu-Chek 1 Each Strip) 1 each FS BIDAC [facility] Diltiazem HCl (Diltiazem 120 Mg Cap.Xl.24h) 120 mg PO BID [facility] Last Admin: 12/31/22 09:03 Dose: 120 mg Enoxaparin Sodium (Enoxaparin 40 Mg/0.4 Ml Syringe) 40 mg SQ DAILY [facility] Last Admin: 12/30/22 08:29 Dose: 40 mg Glucose (Dextrose 31 Gm Oral.Susp) 15 gm PO PRN PRN PRN Reason: Hypoglycemia Guaifenesin (Guaifenesin/Dextromethorphan 5ml Ud Cup) 10 ml PO Q4HP PRN PRN Reason: Cough Last Admin: 12/29/22 21:10 Dose: 10 ml Hydralazine HCl (Hydralazine 20 Mg/Ml Vial) 10 mg IV Q4-6HP PRN PRN Reason: Hypertension Piperacillin Sod/Tazobactam (Sod 3.375 gm/ Dextrose) 50 mls @ 100 mls/hr IV Q6H [facility]; Protocol Last Infusion: 12/31/22 06:07 Dose: Infused Vancomycin HCl 1,000 mg/ (Sodium Chloride) 250 mls @ 250 mls/hr IV Q24H [facility] Last Admin: 12/31/22 09:56 Dose: 250 mls/hr Insulin Human Lispro (Insulin Lispro 1 Unit/0.01 Ml Unit) 0 unit SQ BIDAC [facility]; Protocol Iron Carb/Multivit/Manager Entry/Folic Acid (Multivit,Ther Iron,Ca,Fa & Min 1 Tablet) 1 tab PO DAILY [facility] Last Admin: 12/31/22 09:03 Dose: 1 tab Levalbuterol HCl (Levalbuterol 1.25 Mg/3 Ml Ampul.Neb) 1.25 mg NEB Q4HP PRN PRN Reason: Shortness Of Breath Last Admin: 12/31/22 04:55 Dose: 1.25 mg Levothyroxine Sodium (Levothyroxine 100 Mcg Tablet) 100 mcg PO ACB [facility] Last Admin: 12/31/22 07:39 Dose: 100 mcg Loperamide HCl (Loperamide 2 Mg Capsule) 2 mg PO PRN PRN PRN Reason: Diarrhea Magnesium Oxide (Magnesium Oxide 400 Mg Tablet) 400 mg PO QDAY [facility] Last Admin: 12/31/22 09:04 Dose: 400 mg Ondansetron HCl (Ondansetron 4 Mg/2 Ml Vial) 4 mg IV Q6HP PRN PRN Reason: Nausea And Vomiting Last Admin: 12/30/22 17:55 Dose: 4 mg Pantoprazole Sodium (Pantoprazole 40 Mg Tablet) 40 mg PO QHS [facility] Last Admin: 12/30/22 20:32 Dose: 40 mg Dimethicone 5 % (Cream) 1 dose TOPICAL QIDP PRN PRN Reason: Skin Irritation Prochlorperazine (Prochlorperazine 10 Mg/2 Ml Vial) 5 mg IV Q4HP PRN PRN Reason: Nausea And Vomiting Promethazine HCl (Promethazine 25 Mg/Ml Vial) 12.5 mg IV Q6HP PRN PRN Reason: Nausea And Vomiting Simethicone (Simethicone 80 Mg Tab.Chew) 80 mg CHEWED QIDP PRN PRN Reason: Abdominal Discomfort Simvastatin (Simvastatin 10 Mg Tablet) 10 mg PO [facility] Last Admin: 12/30/22 20:30 Dose: 10 mg Sodium Chloride (0.9 % Sodium Chloride 10 Ml Syringe) 10 ml IV Q8 [facility] Last Admin: 12/31/22 05:28 Dose: 10 ml Trazodone HCl (Trazodone Hcl 50 Mg Tablet) 25 mg PO HSP PRN PRN Reason: Insomnia Vancomycin HCl (Vancomycin Per Pharmacy) 1 order IV UD [facility]; Protocol Vitamin D (Vitamin D3 25 Mcg Tablet) 25 mcg PO BID [facility] Last Admin: 12/31/22 09:03 Dose: 25 mcg A/P Time Spent With Patient Time: Total time spent is greater than 50% in coordination of care (as documented) at patient's floor/unit and/or counseling patient: QUALITY Stroke Symptom Onset Unknown: No VTE Deep Vein Thrombosis/Pulmonary Embolism Present on Admission: No
[2022-12-31] MEDS: ATENOLOL 25 MG TABLET PO SCH (21:11)
[2022-12-31] MEDS: SIMVASTATIN 10 MG TABLET PO SCH (21:13)
[2022-12-31] MEDS: PANTOPRAZOLE 40 MG TABLET PO SCH (21:13)
[2023-01-01] MEDS: PIPERACILLIN SODIUM/TAZOBACTAM 3.375 GM in DEXTROSE 5% IN WATER 50 ML IV SCH ×5 (00:24→23:48)
[2023-01-01] MEDS: 0.9 % SODIUM CHLORIDE 10 ML SYRINGE IV SCH ×3 (05:27→20:16)
[2023-01-01] MEDS: LEVOTHYROXINE 100 MCG TABLET PO SCH (07:50)
[2023-01-01] MEDS: INSULIN LISPRO 1 UNIT/0.01 ML UNIT SQ SCH ×2 (07:51→16:54)
[2023-01-01] MEDS: ASPIRIN 81 MG TAB.CHEW PO SCH (08:33)
[2023-01-01] MEDS: CYANOCOBALAMIN (VITAMIN B-12) 500 MCG TABLET PO SCH (08:34)
[2023-01-01] MEDS: MULTIVIT,THER IRON,CA,FA & MIN 1 TABLET PO SCH (08:34)
[2023-01-01] MEDS: VITAMIN D3 25 MCG TABLET PO SCH ×2 (08:34→20:29)
[2023-01-01] MEDS: ENOXAPARIN 40 MG/0.4 ML SYRINGE SQ SCH (08:34)
[2023-01-01] MEDS: DILTIAZEM 120 MG CAP.XL.24H PO SCH ×2 (08:34→20:28)
[2023-01-01] MEDS: MAGNESIUM OXIDE 400 MG TABLET PO SCH (08:34)
--- NOTE | 2023-01-01 11:11 | Internal Med Progress Note ---
SUBJECTIVE Subjective Patient information: Note initiated : 01/01/23 at 11:09 am Service Date, if different from initiated Date: [] Patient: Molly Balderas a 87 y/o F admitted on 12/30/22 for pneumonia/UTI. Chief Complaint: [] Additional PMFSH (Level 3 Only): Interval history: Ms. Balderas is a 87 year old F history of type 2 diabetes mellitus, hypothyroidism, GERD, dyslipidemia, hypertensions, presenting with 1 day history of nausea vomiting and diarrhea. She is coming of nausea vomiting and diarrhea. In addition, she is coming of shortness of breath, nonproductive cough, as well as shaking chills. She denies having any subjective fever or diaphoresis. She denies having any dysuria. She denies recent travel or sick contact. She has some strength last night which was new for her. Vital signs at ED presentation only significant for mild tachypnea with rate of breathing in the mid 20s, rest of the vital signs within normal limits. Labs significant for lack of leukocytosis with WBC 6.7. Lactic acid 3.2-->2.4-->3.1. CT of the abdomen and pelvis showing left lower lobe pneumonia as well as left pyelonephritis/cystitis. Admission request is called for metabolic acidosis associated with pneumonia/UTI. 12/29: Patient had low-grade fever 37.9 overnight. Patient is currently on room air. All cultures no growth to date. Patient is complaining of improving degree of shortness of breath. She is complaining of productive cough. She is complaining of wheezing. She denies any chest pain. She denies any subjective fever or chills. Continue empiric antibiotics with Rocephin and azithromycin for left lower lobe pneumonia and urinary tract infections while monitoring for culture results. Overall condition guarded. Stay in [facility]. 12/30: Low-grade fever Tmax 37.3 overnight and this morning. WBC Climbing to 17.9 this morning. Urine culture growing gram-negative bacillus, identity and sensitivity pending. Blood culture no growth to date. Patient have chills. She denies any fever or diaphoresis. She had 1 loose stool overnight but denies any nausea or vomiting. She denies any shortness of breath. She denies any cough. She denies any dysuria. Saline lock patient. Switch antibiotics from Rocephin and Zithromax to vancomycin and Zosyn. MRSA screening. C. difficile toxin PCR screening. Overall condition guarded. Stay in [facility]. 12/31: Patient had Tmax of 99.3 F overnight, leukocytosis is 15.1 improved from 17.9 yesterday. Hemoglobin 10.1. Patient reports she has history of MRSA skin infection at least twice. Her MRSA PCR in-house is negative. Blood culture has been negative. Patient reports some cough and some bronchospasm and chest tightness. She reported she was exposed to passive smoking but has never been a smoker herself. Her urine culture grew pansensitive E. coli. Patient states her diabetic control has always been very good, she is requesting BG's to be checked only twice a day. 01/01.Last evening Tmax was 100.6. CBC is not available from this morning and still pending. Patient reports cough is improving. Vanco trough 7.7 Review of systems 12 point review of system was completed Low-grade fever overnight, no chills No chest pain or palpitations Some cough remains, patient has some chest tightness No nausea or vomiting Alert and oriented Denies any depression Physical examination Head Head exam: Present atraumatic and normal inspection Eye Eye exam: Present normal appearance ENT ENT exam: Present mucous membranes moist, normal exam and normal external ear exam Neck Neck exam: Present normal inspection Respiratory Respiratory exam: mild scattered rales present, no respiratory distress Cardiovascular Cardiovascular exam: Present normal rate and rhythm GI/Abdominal GI/Abdominal exam: Present normal bowel sounds Back Exam Back exam: Present normal inspection Neurological Exam Neurological exam: Present alert and oriented X3 Skin Skin exam: Present intact and warm Assessment and Plan: 1. Left lower lobe pneumonia: Observation-->inpatient med surg Patient leukocytosis was worsening, antibiotics were changed from ceftriaxone azithromycin to vancomycin and Zosyn Patient has history of MRSA skin infection x2. MRSA screen in house negative Currently on vancomycin and Zosyn Serial lactic acid Procalcitonin level 0.17 Respiratory panel negative Blood culture, no growth to date C diff toxin PCR screening given loose stool Robitussin DM Xopenex PRN respiratory wheezing Physical therapy evaluation and treatment 2. UTI (cystitis vs left pyelonephritis): Urine culture positive for pansensitive E. coli Blood culture, no growth to date Zosyn will cover 3. T2DM: HgA1c 5.7 Insulin Lispro SSI AC HS Blood glucose check twice daily per patient request Hypoglycemia protocol Diabetic diet 4. Essential hypertension: Atenolol Diltiazem Hydralazine 10mg IV q4-6hr PRN SBP>=180 and/or DBP>=110mmHg 5. Hypothyroidism: Continue thyroid replacement therapy 6. Hyperlipidemia: Continue statin therapy 7. GERD: Protonix GI ppx: Protonix DVT ppx: Lovenox Code status: DNR Prognosis: guarded Disposition: observation-->inpatient med surg Time Spent With Patient Time: Total time spent is greater than 50% in coordination of care (as documented) at patient's floor/unit and/or counseling patient: Subsequent: Total time with patient: 35 - 49 minutes Constitutional Vitals: Vital Signs Temp Pulse Resp BP Pulse Ox O2 Del Method 98.8 F 66 18 135/56 94 Room Air 01/01/23 06:37 01/01/23 06:37 01/01/23 06:37 01/01/23 06:37 01/01/23 06:37 01/01/23 06:37 Period Temp Pulse Resp BP Sys/Rodrigues Pulse Ox O2 Del Method O2 Flow Rate Last 24 Hr 98.4 F-100.6 F 66-83 14-24 125-145/51-62 91-95 Room Air-Room Air Intake and Output 12/31/22 01/01/23 01/01/23 19:59 03:59 11:59 Intake Total 1048 290 850 Output Total 651 400 550 Balance 397 -110 300 Weight 69.853 kg 69.853 kg Patient Weight 01/02/23 03:59 Weight 69.853 kg Intake & Output: Intake & Output 12/31/22 01/01/23 01/01/23 19:59 03:59 11:59 Intake Total 1048 290 850 Output Total 651 400 550 Balance 397 -110 300 Weight 69.853 kg 69.853 kg Intake: IV 688 50 50 Sodium Chloride 0.9% 1,000 ml @ 588 100 mls/hr IV .Q10H [facility] Rx#: [id number] Zosyn 3.375 gm In Dextrose 5% 100 50 50 in Water 50 ml @ 100 mls/hr IV Q6H [facility] Rx#:[id number] Oral 360 240 800 Output: Urine Catheter Amount 350 Void Amount 300 400 550 # of times incontinent of urine 1 Other: Meal Dinner Percent of Meal Consumed 75% Feeding Ability Independent Urine Appearance Clear Clear Urine Color Yellow Yellow Bright Yellow Urine Odor Normal Normal Stool Size Small Stool Color Brown Stool Consistency Liquid Stacia OBJ DATA Labs 12/31/22 05:38 12/30/22 05:07 Labs: Abnormal Lab Results 12/31/22 12/30/22 12/30/22 05:38 05:07 05:07 WBC 15.1 H 17.9 H RBC 3.17 L 2.97 L Hgb 10.1 L 9.2 L Hct 28.9 L 28.2 L MPV 8.6 L Immature Gran % (Auto) 1.1 H 1.7 H Neut % (Auto) 83.1 H Lymph % (Auto) 12.8 L 8.0 L Lymph # (Auto) 1.43 L [place] # (Auto) 1.63 H 1.16 H Immature Gran # 0.17 H 0.30 H Absolute Neutrophils 11.03 H 14.91 H VBG Lactic Acid Chloride 111 H Carbon Dioxide 15 L Calcium 7.8 L Total Protein 5.3 L Albumin 2.6 L 12/29/22 12:39 WBC RBC Hgb Hct MPV Immature Gran % (Auto) Neut % (Auto) Lymph % (Auto) Lymph # (Auto) [place] # (Auto) Immature Gran # Absolute Neutrophils VBG Lactic Acid 2.6 H Chloride Carbon Dioxide Calcium Total Protein Albumin Meds: Medications Acetaminophen (Acetaminophen 325 Mg Tablet) 650 mg PO Q6HP PRN; Protocol PRN Reason: Per Pain Protocol/Fever > 101 Aspirin (Aspirin 81 Mg Tab.Chew) 81 mg PO QDAY [facility] Last Admin: 01/01/23 08:33 Dose: 81 mg Atenolol (Atenolol 25 Mg Tablet) 12.5 mg PO QHS [facility] Last Admin: 12/31/22 21:11 Dose: 12.5 mg Cyanocobalamin (Cyanocobalamin (Vitamin B-12) 500 Mcg Tablet) 1,000 mcg PO DAILY [facility] Last Admin: 01/01/23 08:34 Dose: 1,000 mcg Dextrose (Dextrose 50% 50 Ml Vial) 0 ml IV UD PRN PRN Reason: Per Sliding Scale Diagnostic Test (Pha) (Accu-Chek 1 Each Strip) 1 each FS BIDAC [facility] Last Admin: 01/01/23 07:50 Dose: 1 each Diltiazem HCl (Diltiazem 120 Mg Cap.Xl.24h) 120 mg PO BID [facility] Last Admin: 01/01/23 08:34 Dose: 120 mg Enoxaparin Sodium (Enoxaparin 40 Mg/0.4 Ml Syringe) 40 mg SQ DAILY [facility] Last Admin: 01/01/23 08:34 Dose: 40 mg Glucose (Dextrose 31 Gm Oral.Susp) 15 gm PO PRN PRN PRN Reason: Hypoglycemia Guaifenesin (Guaifenesin/Dextromethorphan 5ml Ud Cup) 10 ml PO Q4HP PRN PRN Reason: Cough Last Admin: 12/29/22 21:10 Dose: 10 ml Hydralazine HCl (Hydralazine 20 Mg/Ml Vial) 10 mg IV Q4-6HP PRN PRN Reason: Hypertension Piperacillin Sod/Tazobactam (Sod 3.375 gm/ Dextrose) 50 mls @ 100 mls/hr IV Q6H [facility]; Protocol Last Infusion: 01/01/23 05:59 Dose: Infused Vancomycin HCl 1,000 mg/ (Sodium Chloride) 250 mls @ 250 mls/hr IV Q12H [facility] Insulin Human Lispro (Insulin Lispro 1 Unit/0.01 Ml Unit) 0 unit SQ BIDAC [facility]; Protocol Last Admin: 01/01/23 07:51 Dose: Not Given Iron Carb/Multivit/Clinical Documentation Improvement Specialist/Folic Acid (Multivit,Ther Iron,Ca,Fa & Min 1 Tablet) 1 tab PO DAILY [facility] Last Admin: 01/01/23 08:34 Dose: 1 tab Levalbuterol HCl (Levalbuterol 1.25 Mg/3 Ml Ampul.Neb) 1.25 mg NEB Q4HP PRN PRN Reason: Shortness Of Breath Last Admin: 12/31/22 21:19 Dose: 1.25 mg Levothyroxine Sodium (Levothyroxine 100 Mcg Tablet) 100 mcg PO ACB [facility] Last Admin: 01/01/23 07:50 Dose: 100 mcg Loperamide HCl (Loperamide 2 Mg Capsule) 2 mg PO PRN PRN PRN Reason: Diarrhea Magnesium Oxide (Magnesium Oxide 400 Mg Tablet) 400 mg PO QDAY [facility] Last Admin: 01/01/23 08:34 Dose: 400 mg Ondansetron HCl (Ondansetron 4 Mg/2 Ml Vial) 4 mg IV Q6HP PRN PRN Reason: Nausea And Vomiting Last Admin: 12/30/22 17:55 Dose: 4 mg Pantoprazole Sodium (Pantoprazole 40 Mg Tablet) 40 mg PO QHS [facility] Last Admin: 12/31/22 21:13 Dose: 40 mg Dimethicone 5 % (Cream) 1 dose TOPICAL QIDP PRN PRN Reason: Skin Irritation Prochlorperazine (Prochlorperazine 10 Mg/2 Ml Vial) 5 mg IV Q4HP PRN PRN Reason: Nausea And Vomiting Promethazine HCl (Promethazine 25 Mg/Ml Vial) 12.5 mg IV Q6HP PRN PRN Reason: Nausea And Vomiting Simethicone (Simethicone 80 Mg Tab.Chew) 80 mg CHEWED QIDP PRN PRN Reason: Abdominal Discomfort Simvastatin (Simvastatin 10 Mg Tablet) 10 mg PO HS [facility] Last Admin: 12/31/22 21:13 Dose: 10 mg Sodium Chloride (0.9 % Sodium Chloride 10 Ml Syringe) 10 ml IV Q8 [facility] Last Admin: 01/01/23 05:27 Dose: 10 ml Trazodone HCl (Trazodone Hcl 50 Mg Tablet) 25 mg PO HSP PRN PRN Reason: Insomnia Vancomycin HCl (Vancomycin Per Pharmacy) 1 order IV [facility]; Protocol Vitamin D (Vitamin D3 25 Mcg Tablet) 25 mcg PO BID [facility] Last Admin: 01/01/23 08:34 Dose: 25 mcg A/P Time Spent With Patient Time: Total time spent is greater than 50% in coordination of care (as documented) at patient's floor/unit and/or counseling patient: QUALITY Stroke Symptom Onset Unknown: No VTE Deep Vein Thrombosis/Pulmonary Embolism Present on Admission: No
[2023-01-01 11:59] LABS: Basophils # (Auto) 0.06 K/mcL (0.00-0.30); Basophils % (Auto) 0.7 % (0.0-2.0); Eosinophils # (Auto) 0.67 K/mcL (0.00-0.70); Eosinophils % (Auto) 7.4 % (0.0-7.0); Hematocrit 29.7 % (34.1-44.9); Hemoglobin 9.6 g/dL (11.2-15.7); Lymphocytes # (Auto) 1.06 K/mcL (1.50-4.80); Lymphocytes % (Auto) 11.8 % (15.5-49.0); Mean Cell Volume 95.8 fL (80.0-100.0); Mean Corpuscular HGB Conc 32.3 g/dL (31.0-36.0); Mean Platelet Volume 8.6 fL (8.8-12.5); Monocytes % (Auto) 17.8 % (1.0-12.0); Platelet Count 217 K/mcL (140-440); Red Cell Distribution Width 13.7 % (11.5-14.5)
[2023-01-01] MEDS: VANCOMYCIN 1,000 MG in 0.9 % SODIUM CHLORIDE 250 ML IV SCH ×3 (12:09→21:10)
[2023-01-01] MEDS: ATENOLOL 25 MG TABLET PO SCH (20:28)
[2023-01-01] MEDS: SIMVASTATIN 10 MG TABLET PO SCH (20:29)
[2023-01-01] MEDS: PANTOPRAZOLE 40 MG TABLET PO SCH (20:29)
[2023-01-01] MEDS: LEVALBUTEROL 1.25 MG/3 ML AMPUL.NEB NEB PRN (20:39)
[2023-01-02] MEDS: PIPERACILLIN SODIUM/TAZOBACTAM 3.375 GM in DEXTROSE 5% IN WATER 50 ML IV SCH ×2 (06:07→11:11)
[2023-01-02] MEDS: 0.9 % SODIUM CHLORIDE 10 ML SYRINGE IV SCH (06:08)
[2023-01-02 06:53] LABS: Basophils # (Auto) 0.07 K/mcL (0.00-0.30); Basophils % (Auto) 0.9 % (0.0-2.0); Eosinophils # (Auto) 0.71 K/mcL (0.00-0.70); Eosinophils % (Auto) 9.3 % (0.0-7.0); Hematocrit 31.7 % (34.1-44.9); Hemoglobin 10.5 g/dL (11.2-15.7); Lymphocytes # (Auto) 1.33 K/mcL (1.50-4.80); Lymphocytes % (Auto) 17.5 % (15.5-49.0); Mean Cell Volume 93.5 fL (80.0-100.0); Mean Corpuscular HGB Conc 33.1 g/dL (31.0-36.0); Mean Platelet Volume 8.5 fL (8.8-12.5); Monocytes # (Auto) 1.33 K/mcL (0.10-0.90); Monocytes % (Auto) 17.5 % (1.0-12.0); Neutrophils % (Auto) 53.1 % (38.0-78.0); Platelet Count 223 K/mcL (140-440); RBC 3.39 M/mcL (3.59-5.38); Red Cell Distribution Width 13.4 % (11.5-14.5); WBC 7.6 K/mcL (4.5-11.0)
[2023-01-02] MEDS: LEVOTHYROXINE 100 MCG TABLET PO SCH (07:34)
[2023-01-02] MEDS: INSULIN LISPRO 1 UNIT/0.01 ML UNIT SQ SCH (07:35)
[2023-01-02] MEDS: ASPIRIN 81 MG TAB.CHEW PO SCH (08:21)
[2023-01-02] MEDS: CYANOCOBALAMIN (VITAMIN B-12) 500 MCG TABLET PO SCH (08:22)
[2023-01-02] MEDS: VANCOMYCIN 1,000 MG in 0.9 % SODIUM CHLORIDE 250 ML IV SCH (08:22)
[2023-01-02] MEDS: MULTIVIT,THER IRON,CA,FA & MIN 1 TABLET PO SCH (08:22)
[2023-01-02] MEDS: VITAMIN D3 25 MCG TABLET PO SCH (08:22)
[2023-01-02] MEDS: DILTIAZEM 120 MG CAP.XL.24H PO SCH (08:22)
[2023-01-02] MEDS: MAGNESIUM OXIDE 400 MG TABLET PO SCH (08:22)
[2023-01-02 08:26] LABS: ALT/SGPT 8 U/L (<40); AST/SGOT 11 U/L (<32); Albumin 2.9 gm/dL (3.2-5.2); Albumin/Globulin Ratio 0.8 (1.0-2.3); Alkaline Phosphatase 75 U/L (39-117); Bilirubin,Total 0.3 mg/dL (0.1-1.0); Blood Urea Nitrogen 12 mg/dL (8-23); Calcium 8.8 mg/dL (8.6-10.4); Carbon Dioxide 19 mmol/L (22-30); Chloride 105 mmol/L (96-108); Globulin 3.5 gm/dL (2.2-3.7); Glomerular Filtration Rate 67; Glucose 96 mg/dL (70-105)
--- NOTE | 2023-01-02 09:29 | Discharge Summary ---
Discharge Provider Provider IMPORTANT FOLLOW-UP INFORMATION FOR PCP: Patient information: Note initiated : 01/02/23 at 9:29 am Service Date, if different from initiated Date: [] Patient: Molly Balderas 87 y/o F admitted on 12/30/22 for pneumonia/UTI. Chief Complaint: [] Date of admission: 12/30/22 10:10 Discharge date: 01/02/23 Primary care physician: Salma Rangel Consults: 12/28/22 Consult to Physician [CONS] Stat Comment: Consulting Provider: Pablo Medina Reason For Exam: Physician to Consult COURSE Hospital Course Hospital course: Ms. Balderas is a 87 year old F history of type 2 diabetes mellitus, hypothyroidism, GERD, dyslipidemia, hypertensions, presented with 1 day history of nausea, vomiting and diarrhea. In addition, she reported shortness of johny th, nonproductive cough, as well as shaking and chills. She denies having any subjective fever or diaphoresis. She denies having any dysuria. She denies recent travel or sick contact. Vital signs at ED presentation only significant for mild tachypnea with rate of breathing in the mid 20s, rest of the vital signs within normal limits. Labs significant for lack of leukocytosis with WBC 6.7. Lactic acid 3.2-->2.4-->3.1. CT of the abdomen and pelvis showing left lower lobe pneumonia as well as left pyelonephritis/cystitis. Admission request is called for metabolic acidosis associated with pneumonia/UTI. 12/29: Patient had low-grade fever 37.9 overnight. Patient is currently on room air. All cultures no growth to date. Patient is complaining of improving degree of shortness of breath. She is complaining of productive cough. She is complaining of wheezing. She denies any chest pain. She denies any subjective fever or chills. Continue empiric antibiotics with Rocephin and azithromycin for left lower lobe pneumonia and urinary tract infections while monitoring for culture results. Overall condition guarded. Stay in [facility]. 12/30: Low-grade fever Tmax 37.3 overnight and this morning. WBC Climbing to 17.9 this morning. Urine culture growing gram-negative bacillus, identity and sensitivity pending. Blood culture no growth to date. Patient have chills. She denies any fever or diaphoresis. She had 1 loose stool overnight but denies any nausea or vomiting. She denies any shortness of breath. She denies any cough. She denies any dysuria. Saline lock patient. Switch antibiotics from Rocephin and Zithromax to vancomycin and Zosyn. MRSA screening. C. difficile toxin PCR screening. Overall condition guarded. Stay in [facility]. 12/31: Patient had Tmax of 99.3 F overnight, leukocytosis is 15.1 improved from 17.9 yesterday. Hemoglobin 10.1. Patient reports she has history of MRSA skin infection at least twice. Her MRSA PCR in-house is negative. Blood culture has been negative. Patient reports some cough and some bronchospasm and chest tightness. She reported she was exposed to passive smoking but has never been a smoker herself. Her urine culture grew pansensitive E. coli. Patient states her diabetic control has always been very good, she is requesting BG's to be checked only twice a day. 01/01.Last evening Tmax was 100.6. CBC is not available from this morning and still pending. Patient reports cough is improving. Vanco trough 7.7 01/02 continues to feel well. Ambulating 200-300 feet with sats in mid 90s on room air. Cough is minimal. Blood cultures negative. MRSA screen negative. Review of systems 12 point review of system was completed Denies any fever or chills. No chest pain or palpitations Minimal cough, no chest tightness, no sputum production No nausea or vomiting Alert and oriented Denies any depression Physical examination Head Head exam: Present atraumatic and normal inspection Eye Eye exam: Present normal appearance ENT ENT exam: Present mucous membranes moist, normal exam and normal external ear exam Neck Neck exam: Present normal inspection Respiratory Respiratory exam:Chest is clear bilaterally, satting well on room air Cardiovascular Cardiovascular exam: Present normal rate and rhythm GI/Abdominal GI/Abdominal exam: Present normal bowel sounds Back Exam Back exam: Present normal inspection Neurological Exam Neurological exam: Present alert and oriented X3 Skin Skin exam: Present intact and warm Assessment and Plan: 1. Left lower lobe pneumonia: Chest x-ray with left lower lobe infiltrate Leukocytosis 17,000-->02549 --> 9000--7600 Respiratory panel negative Procalcitonin level 0.17. Patient has history of MRSA skin infection x2. MRSA screen in house negative Blood culture negative. Antitussives. Xopenex PRN respiratory wheezing Received vancomycin, Zosyn and azithromycin. Will be transition to Augmentin to complete a total of 10 to 14 days course 2. UTI (left pyelonephritis and cystitis): Urine culture positive for pansensitive E. coli Blood culture, no growth to date Patient received Zosyn and will be transitioned to Augmentin to complete 10 to 14 days course upon discharge 3. T2DM: HgA1c 5.7 BGs stable Diabetic diet 4. Essential hypertension: Atenolol Diltiazem Hydralazine 10mg IV q4-6hr PRN SBP>=180 and/or DBP>=110mmHg 5. Hypothyroidism: Continue thyroid replacement therapy 6. Hyperlipidemia: Continue statin therapy 7. GERD: Protonix GI ppx: Protonix DVT ppx: Lovenox Code status: DNR Disposition: Home with family care Total time spent is greater than 50% in coordination of care (as documented) at patient's floor/unit and/or counseling patient: Subsequent: Total time with patient: 35 - 49 minutes Discharge diagnosis: Pneumonia, UTI Time Spent with Patient Time attestation: Total time spent providing and/or coordinating discharge services: Time spent: Greater than 30 minutes EXAM Constitutional Vitals: Temp Pulse Resp BP Pulse Ox O2 Del Method 98.8 F 63 16 137/57 92 Room Air 01/02/23 07:37 01/02/23 07:37 01/02/23 03:38 01/02/23 07:37 01/02/23 07:37 01/02/23 07:37 Discharge Data Data Completed and Pending Labs on day of discharge: Labs from last 24 hours 01/02/23 01/02/23 01/01/23 05:53 05:53 05:48 WBC 7.6 9.0 RBC 3.39 L 3.10 L Hgb 10.5 L 9.6 L Hct 31.7 L 29.7 L MCV 93.5 95.8 MCH 31.0 31.0 MCHC 33.1 32.3 RDW 13.4 13.7 Plt Count 223 217 MPV 8.5 L 8.6 L Immature Gran % (Auto) 1.7 H 1.3 H Neut % (Auto) 53.1 61.0 Lymph % (Auto) 17.5 11.8 L Haines % (Auto) 17.5 H 17.8 H Eos % (Auto) 9.3 H 7.4 H Baso % (Auto) 0.9 0.7 Lymph # (Auto) 1.33 L 1.06 L Haines # (Auto) 1.33 H 1.60 H Eos # (Auto) 0.71 H 0.67 Baso # (Auto) 0.07 0.06 Immature Gran # 0.13 H 0.12 H Absolute Neutrophils 4.05 5.50 Sodium 133 Potassium 3.8 Chloride 105 Carbon Dioxide 19 L Anion Gap 9.0 BUN 12 Creatinine 0.8 GFR Calculation 67 Glucose 96 Calcium 8.8 Total Bilirubin 0.3 AST 11 ALT 8 Alkaline Phosphatase 75 Total Protein 6.4 Albumin 2.9 L Globulin 3.5 Albumin/Globulin Ratio 0.8 L Preliminary micro results at discharge 12/28/22 15:38 Blood Culture - Preliminary Blood 12/28/22 15:15 Blood Culture - Preliminary Blood Discharge Plan Patient/Caregiver Discharge Instructions Activity: increase activity as tolerated Diet: Cardiac Instructions: Urinary Tract Infection in Women (GEN), Bacterial Pneumonia (GEN) Prescriptions: New amoxicillin-pot clavulanate 875-125 mg tablet 1 tab PO BID Qty: 10 0RF Continued atenolol 25 mg tablet 12.5 mg PO QHS aspirin 81 mg tablet,delayed release (DR/EC) 81 mg PO QDAY cranberry 500 mg capsule 1,400 mg PO QDAY Rx Instructions: 4,200 mg a day. magnesium oxide 400 mg (241.3 mg magnesium) tablet 400 mg PO QDAY (DME) blood sugar diagnostic strip See Dose Instructions .ROUTE .MEDSUPPLY Rx Instructions: As directed cholecalciferol (vitamin D3) 1,000 unit capsule 1,000 unit PO BID multivitamin capsule 1 tab-cap PO QDAY cyanocobalamin (vitamin B-12) 1,000 mcg tablet 1,000 mcg PO QDAY diltiazem HCl 120 mg capsule,extended release 24hr See Rx Instructions .ROUTE .COMPLEX Rx Instructions: Take 1 BID; if sbp is less than 120; hold morning dose; methylsulfonylmethane [MSM] 1,000 mg tablet 1,500 mg PO QDAY pantoprazole 40 mg tablet,delayed release (DR/EC) 40 mg PO QHS 30 Days Qty: 30 pravastatin 20 mg tablet 20 mg PO QHS acetaminophen 500 mg capsule 500 mg PO Q6H PRN (Reason: Pain) simethicone [Gas-X Extra Strength] 125 mg capsule 125 mg PO BID-QID PRN (Reason: Abdominal Discomfort) levothyroxine 100 mcg capsule 100 mcg PO QAM vit C,E,Zn,[id number] 250-2.5-0.5 mg capsule PO dimethicone 5 % cream 1 applic topical TID-QID PRN (Reason: Skin Irritation) ondansetron 4 mg tablet,disintegrating 4 mg PO Q6H PRN (Reason: nausea and vomiting) Qty: 20 0RF Follow Up Plan Follow up with: Salma Rangel MD [Primary Care Provider] - (in 1 week) Patient Disposition: Home, Self-Care Prognosis: Fair Overall status at discharge: patient is progressing back to baseline Discharge Orders: Discharge Order (Routine); Ordered 01/02/23 Ordered By: Willie LOZANO VTE Deep Vein Thrombosis/Pulmonary Embolism Present on Admission: No
== END 2023-01-02 13:09 | disposition home or self-care (01) | DRG 194 ==
LOC: ED 06:18 → MEDSUR 06:18
PROVIDERS: ADMIT Internal Medicine; ATTEND Internal Medicine